=== PATIENT | male | born 1995 | race Hispanic/Latino ===

== ENCOUNTER 2016-07-18 18:36 | Emergency (ER) | payer MEDICAID ==
[2016-07-18 19:20] LABS: Urine Drugs of Abuse Note Disclamer
[2016-07-18 19:29] LABS: Bilirubin,Urine NEG (Negative); Blood,Urine NEG (Negative); Ketones,Urine NEG (Negative); Leukocyte Esterase,Urine NEG (Negative); Nitrite,Urine NEG (Negative); Protein,Urine <15 mg/dL mg/dL (Negative); Urobilinogen,Urine < 2.0 mg/dL (<2.0); WBC,Urine < 1.0 /HPF (0.0-6.0)
[2016-07-18 19:39] LABS: Basophils % (Auto) 0.4 % (0.0-1.8); Eosinophils % (Auto) 2.3 % (0.0-4.3); Hematocrit 41.8 % (35.5-45.6); Mean Corpuscular HGB Conc 34 % (32-34); Mean Corpuscular Hemoglobin 31 pg (28-32); Mean Corpuscular Volume 91 fl (84-94); Platelet Count 185 K/mm3 (140-440); Red Blood Count 4.59 M/mm3 (3.65-5.03); Red Cell Distribution Width 14.5 % (13.2-15.2); White Blood Count 8.9 K/mm3 (4.5-11.0)
[2016-07-18 19:59] LABS: BUN/Creatinine Ratio 14.28; Blood Urea Nitrogen 10 mg/dL (9-20); Carbon Dioxide 30 mmol/L (22-30); Chloride 97.7 mmol/L (98-107); Glucose 84 mg/dL (75-100); Potassium 4.2 mmol/L (3.6-5.0); Sodium 138 mmol/L (137-145)
[2016-07-18 20:08] LABS: Anion Gap 15 mmol/L
--- NOTE | 2016-07-18 21:59 | Emergency Department Report ---
HPI - General Chief Complaint: Psych Time Seen by Provider: 07/18/16 19:29 - HPI HPI: The patient is a 21-year-old male who presents for evaluation of mental health. The patient reports 2-3 days of constant and severe sadness and thoughts of suicidal ideation. He also reports auditory and visual hallucinations. Per local law enforcement, the patient was found walking down the street naked. The patient denies fever, headache, unexplained weight loss or weight gain, heat or cold intolerance, skin, hair, or nail changes, neuro deficits, homicidal ideations, or auditory or visual hallucinations. ED Past Medical Hx - Past Medical History Hx Psychiatric Treatment: Yes (schizophrenia, depression, anxiety, bipolar, ADHD , ADD, multiple personalit) Additional medical history: Autism Spectrum-Asperger Syndrome. Gender Identity Disorder - Surgical History Additional Surgical History: R Wrist - Social History Smoking Status: Unknown if ever smoked - Medications Home Medications: Home Medications Medication Instructions Recorded Confirmed Last Taken Type Divalproex ER [Depakote ER] 500 mg PO BID 06/02/14 07/18/16 1 Day Ago History 500 OLANzapine [Zyprexa] 20 mg PO BID 06/02/14 07/18/16 1 Day Ago History 20 Trazodone HCl [traZODone] 150 mg PO HS 06/02/14 07/18/16 1 Day Ago History 150 AtorvaSTATin [Lipitor] 20 mg PO QPM 06/06/15 07/18/16 1 Day Ago History 20 Benztropine [Cogentin] 2 mg PO BID 06/06/15 07/18/16 1 Day Ago History 2 Chlorpromazine HCl [chlorproMAZINE] 100 mg PO TID 06/06/15 07/18/16 1 Day Ago History 100 Docusate Sodium [Colace CAP] 100 mg PO BID PRN 06/06/15 07/18/16 1 Day Ago History 100 Mirtazapine [Remeron] 30 mg PO QHS 06/06/15 07/18/16 1 Day Ago History 30 clonazePAM [KlonoPIN] 2 mg PO BID 06/06/15 07/18/16 1 Day Ago History 2 diphenhydrAMINE [Benadryl CAP] 50 mg PO QHS PRN 06/06/15 07/18/16 1 Day Ago History 50 ED Review of Systems ROS: Stated complaint: SUICIDAL THOUGHTS Other details as noted in HPI Constitutional: denies: fever ENT: denies: throat or neck pain Respiratory: denies: cough, shortness of breath Cardiovascular: denies: chest pain Endocrine: denies unexplained weight loss or gain Gastrointestinal: denies: abdominal pain, nausea Genitourinary: denies: dysuria Musculoskeletal: denies: leg swelling Skin: denies: rash Neurological: denies: headache Hematological/Lymphatic: denies: easy bleeding or easy bruising Psych: reports depression and suicidal ideation Physical Exam - Physical Exam Vital Signs: Vital Signs 07/18/16 07/18/16 07/18/16 18:52 18:55 19:30 Temperature 98.2 F 98.9 F Pulse Rate 95 H 87 Respiratory 15 15 18 Rate Blood Pressure 121/89 Blood Pressure 121/89 131/80 [Left] O2 Sat by Pulse 96 96 99 Oximetry Physical Exam: General: well-nourished, well-developed, no acute distress Head: Normocephalic, atraumatic Eyes: normal sclera ENT: Mucous membranes are pink and moist Neck: trachea midline, neck supple, No neck stiffness, no cervical adenopathy Respiratory: Breath sounds equal bilaterally, no wheezing, rales, or rhonchi Cardio: S1 and S2 present, no murmurs, rubs, gallops, capillary refill is brisk Abdomen: Normoactive bowel sounds, soft abdomen, no tenderness Musc: No pitting edema Skin: No rash Neuro: no facial drooping, normal speech Psych: Flat affect, poor insight, positive suicidal ideation ED Course Vital Signs 07/18/16 07/18/16 07/18/16 18:52 18:55 19:30 Temperature 98.2 F 98.9 F Pulse Rate 95 H 87 Respiratory 15 15 18 Rate Blood Pressure 121/89 Blood Pressure 121/89 131/80 [Left] O2 Sat by Pulse 96 96 99 Oximetry ED Medical Decision Making - Lab Data Result diagrams: 07/18/16 19:22 07/18/16 19:22 - Medical Decision Making The patient was seen and examined by myself. The patient is placed on a bus driver/monitor and continuous pulse ox. On initial evaluation, the patient was found to be in no distress. Labs are obtained. Lab results are grossly unremarkable. The patient is medically clear. Mental health is consulted. Mental health evaluates the patient and agrees that the patient is at risk of harm to self. A 1013 is completed. The patient will be admitted to a psychiatric facility once bed placement is obtained. Critical care attestation.: If time is entered above; I have spent that time in minutes in the direct care of this critically ill patient, excluding procedure time. ED Disposition Clinical Impression: Suicidal ideation Disposition: DC/TX PSY HOSP/PSY UNIT Is pt being admited?: No Does the pt Need Aspirin: No Condition: Stable Referrals: PRIMARY CARE [Primary Care Provider] - 3-5 Days Time of Disposition: 20:39
[2016-07-18] MEDS ORDERED: TYLENOL PO PRN (22:03)
[2016-07-18] MEDS ORDERED: ALUM-MAG HYDROX-SIMETH 200-200-20MG/5ML PO PRN (22:03)
[2016-07-18] MEDS ORDERED: MILK OF MAGNESIA PO PRN (22:03)
[2016-07-19] MEDS ORDERED: BENADRYL PO ONE (07:36)
[2016-07-19] MEDS: COGENTIN PO SCH ×2 (10:06→22:34)
[2016-07-20] MEDS: COGENTIN PO SCH ×2 (10:02→22:32)
[2016-07-21] MEDS: COGENTIN PO SCH (10:17)
[2016-07-21 15:04] VITALS: BP 144/88
== END 2016-07-21 16:41 ==
LOC: ED 18:36 → EEVIPCON 18:36 → ED 07-21 16:41
DX: R45.851 Suicidal ideations (principal); F20.9 Schizophrenia, unspecified; F41.9 Anxiety disorder, unspecified; F98.8 Other specified behavioral and emotional disorders with onset usually occurring in childhood and adolescence; F84.0 Autistic disorder; F64.9 Gender identity disorder, unspecified; F31.9 Bipolar disorder, unspecified
CPT/HCPCS: 36415; 80048; 80307; 81001; 85025; 99285; A9270; G0480; 80320

== ENCOUNTER 2016-09-13 09:27 | Emergency (ER) | payer MEDICAID ==
[2016-09-13 09:55] LABS: Urine Drugs of Abuse Note Disclamer
[2016-09-13 10:02] LABS: Basophils % (Auto) 0.3 % (0.0-1.8); Eosinophils % (Auto) 2.4 % (0.0-4.3); Hematocrit 45.9 % (35.5-45.6); Hemoglobin 14.9 gm/dl (11.8-15.2); Mean Corpuscular HGB Conc 33 % (32-34); Mean Corpuscular Hemoglobin 30 pg (28-32); Mean Corpuscular Volume 92 fl (84-94); Platelet Count 202 K/mm3 (140-440); Red Cell Distribution Width 14.2 % (13.2-15.2)
[2016-09-13 10:12] LABS: Anion Gap 15 mmol/L; BUN/Creatinine Ratio 11.11; Blood Urea Nitrogen 10 mg/dL (9-20); Calcium 9.5 mg/dL (8.4-10.2); Carbon Dioxide 31 mmol/L (22-30); Chloride 97.7 mmol/L (98-107); Glucose 99 mg/dL (75-100); Potassium 4.5 mmol/L (3.6-5.0); Sodium 139 mmol/L (137-145)
[2016-09-13 10:39] LABS: Bilirubin,Urine NEG (Negative); Blood,Urine NEG (Negative); Ketones,Urine NEG (Negative); Leukocyte Esterase,Urine NEG (Negative); Nitrite,Urine NEG (Negative); Protein,Urine <15 mg/dL mg/dL (Negative); Urobilinogen,Urine < 2.0 mg/dL (<2.0); WBC,Urine < 1.0 /HPF (0.0-6.0)
--- NOTE | 2016-09-13 11:02 | Emergency Department Report ---
ED Psych HPI - General Chief Complaint: Psych Stated Complaint: SUICIDAL Time Seen by Provider: 09/13/16 09:59 Source: patient, police Mode of arrival: Ambulatory - History of Present Illness MD Complaint: suicidal ideation, feels depressed -: Gradual, month(s) Associated Psychiatric Symptoms: suicidal ideation, auditory hallucinations History of same: Yes Quality: constant Improves With: medication Worsens With: none Context: not taking psychiatric, significant life stressor Associated Symptoms: denies other symptoms Treatments Prior to Arrival: placed on mental he If Self Harm: admits thoughts of, has plan - Related Data Home Medications Medication Instructions Recorded Confirmed Last Taken Divalproex ER [Depakote ER] 500 mg PO BID 06/02/14 09/13/16 1 Day Ago 500 OLANzapine [Zyprexa] 20 mg PO BID 06/02/14 09/13/16 1 Day Ago 20 Trazodone HCl [traZODone] 150 mg PO HS 06/02/14 09/13/16 1 Day Ago 150 AtorvaSTATin [Lipitor] 20 mg PO QPM 06/06/15 09/13/16 1 Day Ago 20 Benztropine [Cogentin] 2 mg PO BID 06/06/15 09/13/16 1 Day Ago 2 Chlorpromazine HCl [chlorproMAZINE] 100 mg PO TID 06/06/15 09/13/16 1 Day Ago 100 Docusate Sodium [Colace CAP] 100 mg PO BID PRN 06/06/15 09/13/16 1 Day Ago 100 Mirtazapine [Remeron] 30 mg PO QHS 06/06/15 09/13/16 1 Day Ago 30 clonazePAM [KlonoPIN] 2 mg PO BID 06/06/15 09/13/16 1 Day Ago 2 diphenhydrAMINE [Benadryl CAP] 50 mg PO QHS PRN 06/06/15 09/13/16 1 Day Ago 50 Allergies Allergy/AdvReac Type Severity Reaction Status Date / Time No Known Allergies Allergy Verified 12/15/15 17:49 ED Review of Systems ROS: Stated complaint: SUICIDAL Other details as noted in HPI Comment: All other systems reviewed and negative ED Past Medical Hx - Past Medical History Previous Medical History?: Yes Hx Psychiatric Treatment: Yes (schizophrenia, depression, anxiety, bipolar, ADHD , ADD, multiple personalit) Additional medical history: Autism Spectrum-Asperger Syndrome. Gender Identity Disorder - Surgical History Past Surgical History?: Yes Additional Surgical History: R Wrist - Social History Smoking Status: Never Smoker Substance Use Type: Prescribed - Medications Home Medications: Home Medications Medication Instructions Recorded Confirmed Last Taken Type Divalproex ER [Depakote ER] 500 mg PO BID 06/02/14 09/13/16 1 Day Ago History 500 OLANzapine [Zyprexa] 20 mg PO BID 06/02/14 09/13/16 1 Day Ago History 20 Trazodone HCl [traZODone] 150 mg PO HS 06/02/14 09/13/16 1 Day Ago History 150 AtorvaSTATin [Lipitor] 20 mg PO QPM 06/06/15 09/13/16 1 Day Ago History 20 Benztropine [Cogentin] 2 mg PO BID 06/06/15 09/13/16 1 Day Ago History 2 Chlorpromazine HCl [chlorproMAZINE] 100 mg PO TID 06/06/15 09/13/16 1 Day Ago History 100 Docusate Sodium [Colace CAP] 100 mg PO BID PRN 06/06/15 09/13/16 1 Day Ago History 100 Mirtazapine [Remeron] 30 mg PO QHS 06/06/15 09/13/16 1 Day Ago History 30 clonazePAM [KlonoPIN] 2 mg PO BID 06/06/15 09/13/16 1 Day Ago History 2 diphenhydrAMINE [Benadryl CAP] 50 mg PO QHS PRN 06/06/15 09/13/16 1 Day Ago History 50 ED Physical Exam - General Limitations: Other General appearance: alert, in no apparent distress - Head Head exam: Present: atraumatic, normocephalic - Eye Eye exam: Present: normal appearance - ENT ENT exam: Present: mucous membranes moist - Neck Neck exam: Present: normal inspection - Respiratory Respiratory exam: Present: normal lung sounds bilaterally. Absent: respiratory distress - Cardiovascular Cardiovascular Exam: Present: regular rate, normal rhythm. Absent: systolic murmur, diastolic murmur, rubs, gallop - GI/Abdominal GI/Abdominal exam: Present: soft, normal bowel sounds - Rectal Rectal exam: Present: deferred - Extremities Exam Extremities exam: Present: normal inspection - Back Exam Back exam: Present: normal inspection - Neurological Exam Neurological exam: Present: alert, oriented X3 - Psychiatric Psychiatric exam: Present: depressed, suicidal ideation - Skin Skin exam: Present: warm, dry, intact, normal color. Absent: rash ED Course Vital Signs 09/13/16 09:31 Temperature 98.6 F Pulse Rate 70 Respiratory 18 Rate Blood Pressure 122/76 O2 Sat by Pulse 100 Oximetry ED Medical Decision Making - Lab Data Result diagrams: 09/13/16 09:41 09/13/16 09:41 - Medical Decision Making Patient doing well and calm , no need for meds here in the ER, Psych seeing and assessing the patient, labs neg except for positive uds, waiting for placement. 1013 form in the chart Critical care attestation.: If time is entered above; I have spent that time in minutes in the direct care of this critically ill patient, excluding procedure time. ED Disposition Clinical Impression: Suicidal ideation, Hallucinations Disposition: DC/TX PSY HOSP/PSY UNIT Is pt being admited?: No Does the pt Need Aspirin: No Condition: Good Referrals: PRIMARY CARE, [Primary Care Provider] - 3-5 Days Time of Disposition: 13:57
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
[2016-09-13 16:48] VITALS: BP 140/74
== END 2016-09-13 16:45 ==
LOC: EEVIPCON 09:27 → ED 09:27
DX: R45.851 Suicidal ideations (principal); R44.3 Hallucinations, unspecified; F20.9 Schizophrenia, unspecified; F31.9 Bipolar disorder, unspecified; F41.9 Anxiety disorder, unspecified; F84.5 Asperger's syndrome
CPT/HCPCS: 36415; 80048; 80307; 81001; 85025; 99285; G0480; 80320

== ENCOUNTER 2016-12-27 12:21 | Emergency (ER) | payer MEDICAID ==
[2016-12-27 12:54] LABS: Urine Drugs of Abuse Note Disclamer
[2016-12-27 12:57] LABS: Basophils % (Auto) 0.7 % (0.0-1.8); Eosinophils % (Auto) 0.8 % (0.0-4.3); Hematocrit 45.6 % (35.5-45.6); Hemoglobin 15.2 gm/dl (11.8-15.2); Mean Corpuscular HGB Conc 33 % (32-34); Mean Corpuscular Hemoglobin 30 pg (28-32); Mean Corpuscular Volume 91 fl (84-94); Platelet Count 182 K/mm3 (140-440); Red Blood Count 5.02 M/mm3 (3.65-5.03)
[2016-12-27 13:07] LABS: Bilirubin,Urine NEG (Negative); Blood,Urine NEG (Negative); Ketones,Urine NEG (Negative); Leukocyte Esterase,Urine NEG (Negative); Mucus,Urine FEW /HPF; Nitrite,Urine NEG (Negative); Protein,Urine <15 mg/dL mg/dL (Negative)
[2016-12-27 13:14] LABS: Anion Gap 20 mmol/L; BUN/Creatinine Ratio 12.22; Blood Urea Nitrogen 11 mg/dL (9-20); Calcium 9.3 mg/dL (8.4-10.2); Carbon Dioxide 25 mmol/L (22-30); Chloride 100.9 mmol/L (98-107); Glucose 109 mg/dL (75-100); Potassium 4.2 mmol/L (3.6-5.0); Sodium 142 mmol/L (137-145)
[2016-12-27] MEDS ORDERED: MILK OF MAGNESIA PO PRN (14:53)
[2016-12-27] MEDS ORDERED: ALUM-MAG HYDROX-SIMETH 200-200-20MG/5ML PO PRN (14:53)
[2016-12-27] MEDS ORDERED: TYLENOL PO PRN (14:53)
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
[2016-12-28 16:25] LABS: Alanine Aminotransferase 12 units/L (7-56); Alkaline Phosphatase 59 units/L (35-129)
[2016-12-29 11:00] VITALS: BP 131/87
--- NOTE | 2016-12-29 15:59 | Progress Note ---
Subjective - Reason for Consult Consult date: 12/29/16 Reason for consult: Psychiatry Follow-up - Chief Complaint Chief complaint: "Will I be leaving today" The patient is a 21-year-old male presenting to [facility] for a mental health evaluation. Today patient is calm and cooperative during the assessment. He stated that he is ready to leave. He denies SI/HI's, AVH's, and depression symptoms. Per the staff, no behavioral disturbances overnight. Mental Status Exam - Vital signs Last Vital Signs Temp 97.7 F 12/29/16 10:58 Pulse 82 12/29/16 10:58 Resp 18 12/29/16 10:58 BP 131/87 12/29/16 10:58 Pulse Ox 99 12/29/16 10:58 - Exam Narrative exam: MSE: Appearance: calm, cooperative Behavior: good eye contact Speech: regular rate and tone Mood: "okay" Affect: congruent to mood Thought Process: linear Thought Content: denies SI/HI's and AVH's Motor Activity: ambulatory Cognition: A/Ox 3 Insight: fair Judgment: fair Assessment and Plan Impression: Historical Dx: Bipolar DO. Today patient is calm and cooperative during the assessment. He stated that he is ready to leave. He denies SI/HI's and AVH's. Recommendation/Plan: Rag Production Worker involvement for placement. Patient stated that he have home regimen of medications.
== END 2016-12-29 17:43 | disposition home or self-care (01) ==
LOC: EEVIPCON 12:21 → ED 12:21
DX: F23 Brief psychotic disorder (principal); R45.851 Suicidal ideations; F20.9 Schizophrenia, unspecified; F31.9 Bipolar disorder, unspecified; F41.9 Anxiety disorder, unspecified; F84.5 Asperger's syndrome; F84.0 Autistic disorder
CPT/HCPCS: 36415; 80048; 80307; 81001; 85025; 99284; G0480; 80320

== ENCOUNTER 2017-04-07 20:11 | Emergency (ER) | payer MEDICAID ==
[2017-04-07 20:47] LABS: Basophils % (Auto) 0.4 % (0.0-1.8); Eosinophils % (Auto) 0.7 % (0.0-4.3); Hemoglobin 14.9 gm/dl (11.8-15.2); Mean Corpuscular HGB Conc 33 % (32-34); Mean Corpuscular Hemoglobin 30 pg (28-32); Mean Corpuscular Volume 91 fl (84-94); Platelet Count 171 K/mm3 (140-440); Red Blood Count 4.97 M/mm3 (3.65-5.03); Red Cell Distribution Width 14.6 % (13.2-15.2); White Blood Count 11.6 K/mm3 (4.5-11.0)
[2017-04-07 20:52] LABS: Anion Gap 19 mmol/L; BUN/Creatinine Ratio 20; Blood Urea Nitrogen 16 mg/dL (9-20); Carbon Dioxide 25 mmol/L (22-30); Chloride 98.6 mmol/L (98-107); Glucose 110 mg/dL (75-100); Potassium 3.9 mmol/L (3.6-5.0); Sodium 139 mmol/L (137-145)
[2017-04-07 21:23] LABS: Urine Drugs of Abuse Note Disclamer
--- NOTE | 2017-04-07 21:25 | Emergency Department Report ---
ED Psych HPI - General Chief Complaint: Psych Stated Complaint: MH Time Seen by Provider: 04/07/17 21:18 Source: patient Mode of arrival: Ambulatory - History of Present Illness Initial Comments: 21-year-old male presents to emergency department complaining of suicidal ideations and auditory hallucinations. Patient does have these multiple times before. States they've been getting worse over the last several days. MD Complaint: suicidal ideation -: Sudden Associated Psychiatric Symptoms: depression, suicidal ideation, homicidal ideation, auditory hallucinations Context: not taking psychiatric - Related Data Home Medications Medication Instructions Recorded Confirmed Last Taken Divalproex ER [Depakote ER] 500 mg PO BID 06/02/14 04/07/17 1 Day Ago 500 OLANzapine [Zyprexa] 20 mg PO BID 06/02/14 04/07/17 1 Day Ago 20 Trazodone HCl [traZODone] 150 mg PO HS 06/02/14 04/07/17 1 Day Ago 150 AtorvaSTATin [Lipitor] 20 mg PO QPM 06/06/15 04/07/17 1 Day Ago 20 Benztropine [Cogentin] 2 mg PO BID 06/06/15 04/07/17 1 Day Ago 2 Chlorpromazine HCl [chlorproMAZINE] 100 mg PO TID 06/06/15 04/07/17 1 Day Ago 100 Docusate Sodium [Colace CAP] 100 mg PO BID PRN 06/06/15 04/07/17 1 Day Ago 100 Mirtazapine [Remeron] 30 mg PO QHS 06/06/15 04/07/17 1 Day Ago 30 clonazePAM [KlonoPIN] 2 mg PO BID 06/06/15 04/07/17 1 Day Ago 2 diphenhydrAMINE [Benadryl CAP] 50 mg PO QHS PRN 06/06/15 04/07/17 1 Day Ago 50 Allergies Allergy/AdvReac Type Severity Reaction Status Date / Time No Known Allergies Allergy Verified 12/27/16 12:26 ED Review of Systems ROS: Stated complaint: MH Other details as noted in HPI Comment: All other systems reviewed and negative Constitutional: denies: chills, fever ENT: denies: ear pain, throat pain Respiratory: denies: cough, shortness of breath, wheezing Cardiovascular: denies: chest pain, palpitations Endocrine: no symptoms reported Gastrointestinal: diarrhea. denies: abdominal pain, nausea Genitourinary: denies: urgency, dysuria Musculoskeletal: denies: back pain, joint swelling, arthralgia Skin: denies: rash, lesions Neurological: denies: headache, weakness, paresthesias Psychiatric: anxiety, auditory hallucinations, suicidal thoughts. denies: depression Hematological/Lymphatic: denies: easy bleeding, easy bruising ED Past Medical Hx - Past Medical History Previous Medical History?: Yes Hx Psychiatric Treatment: Yes (schizophrenia, depression, anxiety, bipolar, ADHD , ADD, multiple personalit) Additional medical history: Autism Spectrum-Asperger Syndrome. Gender Identity Disorder - Surgical History Past Surgical History?: Yes Additional Surgical History: R Wrist - Family History Family history: no significant - Social History Smoking Status: Never Smoker Substance Use Type: None - Medications Home Medications: Home Medications Medication Instructions Recorded Confirmed Last Taken Type Divalproex ER [Depakote ER] 500 mg PO BID 06/02/14 04/07/17 1 Day Ago History 500 OLANzapine [Zyprexa] 20 mg PO BID 06/02/14 04/07/17 1 Day Ago History 20 Trazodone HCl [traZODone] 150 mg PO HS 06/02/14 04/07/17 1 Day Ago History 150 AtorvaSTATin [Lipitor] 20 mg PO QPM 06/06/15 04/07/17 1 Day Ago History 20 Benztropine [Cogentin] 2 mg PO BID 06/06/15 04/07/17 1 Day Ago History 2 Chlorpromazine HCl [chlorproMAZINE] 100 mg PO TID 06/06/15 04/07/17 1 Day Ago History 100 Docusate Sodium [Colace CAP] 100 mg PO BID PRN 06/06/15 04/07/17 1 Day Ago History 100 Mirtazapine [Remeron] 30 mg PO QHS 06/06/15 04/07/17 1 Day Ago History 30 clonazePAM [KlonoPIN] 2 mg PO BID 06/06/15 04/07/17 1 Day Ago History 2 diphenhydrAMINE [Benadryl CAP] 50 mg PO QHS PRN 06/06/15 04/07/17 1 Day Ago History 50 ED Physical Exam - General Limitations: No Limitations General appearance: alert, in no apparent distress - Head Head exam: Present: atraumatic, normocephalic - Eye Eye exam: Present: normal appearance. Absent: scleral icterus, conjunctival injection - ENT ENT exam: Present: mucous membranes moist - Neck Neck exam: Present: normal inspection. Absent: tenderness, meningismus - Respiratory Respiratory exam: Present: normal lung sounds bilaterally. Absent: respiratory distress, wheezes, rales - Cardiovascular Cardiovascular Exam: Present: regular rate, normal rhythm, normal heart sounds. Absent: systolic murmur, diastolic murmur, rubs, gallop - GI/Abdominal GI/Abdominal exam: Present: soft, normal bowel sounds - Rectal Rectal exam: Present: deferred - Extremities Exam Extremities exam: Present: normal inspection - Back Exam Back exam: Present: normal inspection - Neurological Exam Neurological exam: Present: alert, oriented X3 - Psychiatric Psychiatric exam: Present: normal affect, normal mood, suicidal ideation - Skin Skin exam: Present: warm, dry, intact, normal color. Absent: rash ED Course Vital Signs 04/07/17 20:14 Temperature 98.9 F Pulse Rate 88 Respiratory 17 Rate Blood Pressure 139/73 O2 Sat by Pulse 99 Oximetry ED Medical Decision Making - Lab Data Result diagrams: 04/07/17 20:25 04/07/17 20:25 Laboratory Results - last 24 hr 04/07/17 04/07/17 04/07/17 20:25 20:25 20:25 WBC 11.6 H RBC 4.97 Hgb 14.9 Hct 45.0 MCV 91 MCH 30 MCHC 33 RDW 14.6 Plt Count 171 Lymph % (Auto) 30.6 Blair % (Auto) 10.2 H Eos % (Auto) 0.7 Baso % (Auto) 0.4 Lymph # 3.5 Blair # 1.2 H Eos # 0.1 Baso # 0.0 Seg Neutrophils % 58.1 Seg Neutrophils # 6.7 Sodium 139 Potassium 3.9 Chloride 98.6 Carbon Dioxide 25 Anion Gap 19 BUN 16 Creatinine 0.8 Estimated GFR > 60 BUN/Creatinine Ratio 20 Glucose 110 H Calcium 9.0 Plasma/Serum Alcohol < 0.01 - Medical Decision Making Patient is a 21 male with a history of psychiatric illness who was complaining of suicidality. Plan to place patient on a psychiatric hold and will have psychiatry evaluate the patient. Portions of this chart were dictated with dictation software. There may be dictation errors contained within this note. Critical care attestation.: If time is entered above; I have spent that time in minutes in the direct care of this critically ill patient, excluding procedure time. ED Disposition Clinical Impression: Suicidal ideation Disposition: DC/TX-70 ANOTHER TYPE HLTHCARE Is pt being admited?: No Condition: Stable
[2017-04-07 21:29] LABS: Bilirubin,Urine NEG (Negative); Blood,Urine NEG (Negative); Ketones,Urine NEG (Negative); Leukocyte Esterase,Urine NEG (Negative); Mucus,Urine FEW /HPF; Nitrite,Urine NEG (Negative); Protein,Urine <15 mg/dL mg/dL (Negative); WBC,Urine < 1.0 /HPF (0.0-6.0)
[2017-04-08] MEDS: REMERON PO SCH ×2 (00:33→22:28)
[2017-04-08] MEDS: DESYREL PO SCH ×2 (00:33→22:26)
[2017-04-08] MEDS: COGENTIN PO SCH ×3 (00:34→22:29)
[2017-04-08] MEDS ORDERED: COGENTIN ONE (00:41)
--- NOTE | 2017-04-08 12:19 | Consultation ---
History of Present Illness - Reason for Consult Consult date: 04/08/17 Reason for consult: Mental Health Evaluation Requesting physician: JIM HOLLEY - Chief Complaint Chief complaint: "I am suicidal" - History of Present Psychiatric Illness 21 y.o. white male presenting to [facility] for SI's. This patient is known to me. Today patient is calm and cooperative during the assessment. He stated that he became "suicidal" because of an argument at his [facility] with staff. Also, he stated that he was thinking about not being with his parents which exacerbated his "sadness." The patient could not elaborate more about how he feels at this time. When I asked the patient to be more specific about what happened at the penitentiary, he became quiet. He denies HI's and AVH's. He denies sleep disturbance and a poor appetite. He denies recreational drug use and alcohol consumption (etoh). Medications and Allergies Allergies Allergy/AdvReac Type Severity Reaction Status Date / Time No Known Allergies Allergy Verified 12/27/16 12:26 Home Medications Medication Instructions Recorded Confirmed Last Taken Type Divalproex ER [Depakote ER] 500 mg PO BID 06/02/14 04/07/17 1 Day Ago History 500 OLANzapine [Zyprexa] 20 mg PO BID 06/02/14 04/07/17 1 Day Ago History 20 Trazodone HCl [traZODone] 150 mg PO HS 06/02/14 04/07/17 1 Day Ago History 150 AtorvaSTATin [Lipitor] 20 mg PO QPM 06/06/15 04/07/17 1 Day Ago History 20 Benztropine [Cogentin] 2 mg PO BID 06/06/15 04/07/17 1 Day Ago History 2 Chlorpromazine HCl [chlorproMAZINE] 100 mg PO TID 06/06/15 04/07/17 1 Day Ago History 100 Docusate Sodium [Colace CAP] 100 mg PO BID PRN 06/06/15 04/07/17 1 Day Ago History 100 Mirtazapine [Remeron] 30 mg PO QHS 06/06/15 04/07/17 1 Day Ago History 30 clonazePAM [KlonoPIN] 2 mg PO BID 06/06/15 04/07/17 1 Day Ago History 2 diphenhydrAMINE [Benadryl CAP] 50 mg PO QHS PRN 06/06/15 04/07/17 1 Day Ago History 50 Active Meds: Active Medications Benztropine Mesylate (Cogentin) 2 mg PO BID [facility] Last Admin: 04/08/17 10:16 Dose: 2 mg Clonazepam (Klonopin) 2 mg PO BID [facility] Last Admin: 04/08/17 10:16 Dose: 2 mg Divalproex Sodium (Depakote Er) 500 mg PO BID [facility] Last Admin: 04/08/17 10:16 Dose: 500 mg Mirtazapine (Remeron) 30 mg PO QHS [facility] Last Admin: 04/08/17 00:33 Dose: 30 mg Olanzapine (Zyprexa) 20 mg PO BID [facility] Last Admin: 04/08/17 10:16 Dose: 20 mg Trazodone HCl (Desyrel) 150 mg PO QHS [facility] Last Admin: 04/08/17 00:33 Dose: 150 mg Past psychiatric history - Past Medical History Past Medical History: other (Autism) Past Surgical History: Other (Right wrist surgery) - past Psychiatric treatment and history Psych: Bipolar psychiatric treatment history: Patient is seen by an ACT Team. Denies a fam psy hx. - Social History Social history: other (Resides at a penitentiary) Mental Status Exam - Vital signs Last Vital Signs Temp 97.5 F L 04/08/17 09:45 Pulse 62 04/08/17 09:45 Resp 20 04/08/17 09:46 BP 104/63 04/08/17 09:45 Pulse Ox 96 04/08/17 09:46 - Exam Narrative exam: MSE: Appearance: calm, cooperative Behavior: regular eye contact Speech: regular rate and tone Mood: "upset" Affect: congruent to mood Thought Process: circumstantial Thought Content: denies HI's and AVH's Motor Activity: lying in bed Cognition: A/O x3 Insight: variable Judgment: variable Results Result Diagrams: 04/07/17 20:25 04/07/17 20:25 Abnormal lab results 04/07/17 04/07/17 Range/Units 20:25 20:25 WBC 11.6 H (4.5-11.0) K/mm3 Angelina % (Auto) 10.2 H (0.0-7.3) % Angelina # 1.2 H (0.0-0.8) K/mm3 Glucose 110 H (75-100) mg/dL All other labs normal. Assessment and Plan Assessment and plan: Impression: Historical Dx: Bipolar DO. Today patient is calm and cooperative during the assessment. Patient endorses SI's. DDx: R/O MDD Recommendation/Plan: Continue 1013 with placement to inpatient psy services. Continue current medication regimen. Discussed generalized coping skill with patient. Discussed possible suicidality/medication induced sue with patient reference antidepressants. Discussed possible metabolic side effects of Zyprexa with patient. Ordered LFT's now and VA level in the AM.
[2017-04-08 13:35] LABS: Alanine Aminotransferase 14 units/L (7-56); Alkaline Phosphatase 50 units/L (35-129)
[2017-04-09] MEDS: COGENTIN PO SCH ×2 (09:53→22:01)
--- NOTE | 2017-04-09 11:55 | Progress Note ---
Subjective - Reason for Consult Consult date: 04/09/17 Reason for consult: Psychiatry Follow-up - Chief Complaint Chief complaint: "Can I go to another snf" 21 y.o. white male presenting to [facility] for SI's. This patient is known to me. Today patient is calm and cooperative during the assessment. He stated that he would like to go to another snf. He stated that he feel his entire family don't love him. He stated that he would feel much better if his concerns are addressed. He did state that his SI's has "decreased" in the last 24 hours. He denies HI's and AVH's. He denies any side effects of his medications. Mental Status Exam - Vital signs Last Vital Signs Temp 97.8 F 04/09/17 08:29 Pulse 57 L 04/09/17 08:29 Resp 15 04/09/17 08:29 BP 142/87 04/09/17 08:29 Pulse Ox 100 04/09/17 08:29 - Exam Narrative exam: MSE: Appearance: calm, cooperative Behavior: regular eye contact Speech: regular rate and tone Mood: "so so" Affect: congruent to mood Thought Process: circumstantial Thought Content: denies HI's and AVH's, passive SI's Motor Activity: lying in bed Cognition: A/O x3 Insight: variable Judgment: variable Assessment and Plan Impression: Historical Dx: Bipolar DO/Autism. Today patient is calm and cooperative during the assessment. Patient has passive SI's. VA 61.3. DDx: R/O MDD Recommendation/Plan: Continue 1013. Continue current medication regimen. Discussed generalized coping skill with patient. Discussed possible suicidality/ medication induced sue with patient reference antidepressants. Discussed possible metabolic side effects of Zyprexa with patient. Diesel Engine Engineer involvement, patient would like information about a new snf. Patient is seen by [facility] for outpatient psy services.
[2017-04-09] MEDS ORDERED: ATIVAN IM ONE (18:52)
[2017-04-09] MEDS: DESYREL PO SCH (22:03)
[2017-04-09] MEDS: REMERON PO SCH (22:05)
--- NOTE | 2017-04-10 10:29 | Progress Note ---
Subjective - Reason for Consult Consult date: 04/10/17 Reason for consult: Psychiatry Follow-up - Chief Complaint Chief complaint: "I am not suicidal" 21 y.o. white male presenting to [facility] for SI's. This patient is known to me. Today patient is calm and cooperative during the assessment. He stated that he is willing to return back to his half-way once discharged. He stated that he isn't suicidal now or on admission. He stated that he was just "upset" when he was admitted to [facility]. He denies SI/HI's, AVH"s, and depression. Patient has been compliant with his medications with no behavioral disturbances per the staff. He stated that [facility] manage his outpatient psy services. Mental Status Exam - Vital signs Last Vital Signs Temp 97.8 F 04/09/17 08:29 Pulse 57 L 04/09/17 08:29 Resp 15 04/09/17 08:29 BP 142/87 04/09/17 08:29 Pulse Ox 100 04/09/17 08:29 - Exam Narrative exam: MSE: Appearance: calm, cooperative Behavior: regular eye contact Speech: regular rate and tone Mood: "better" Affect: congruent to mood Thought Process: linear, logical Thought Content: denies SI/HI's and AVH's Motor Activity: ambulatory Cognition: A/O x3 Insight: fair Judgment: fair Assessment and Plan Impression: Historical Dx: Bipolar DO/Autism. Today patient is calm and cooperative during the assessment. Patient denies SI's. Patient is no threat to self. DDx: R/O MDD Recommendation/Plan: Rescind 1013. Patient do not need any prescriptions. Template Clerk involvement, patient will need transportation back to his half-way. Patient can follow-up with [facility] for outpatient psy services.
[2017-04-10] MEDS: COGENTIN PO SCH (11:25)
[2017-04-10 15:55] VITALS: BP 134/81
--- NOTE | 2017-04-10 18:57 | Emergency Department Report ---
Blank Doc - Documentation Documentation: I was asked by the behavioral health team, on behalf of [facility] and their attending psychiatrist, to fill out discharge paperwork for this patient. The behavioral health team has seen and evaluated this patient and does not feel that he is a danger to himself and has rescinded the 1013.
== END 2017-04-10 20:04 | disposition home or self-care (01) ==
LOC: ED 20:11 → EEVIPCON 20:11 → ED 04-10 20:04
DX: R45.851 Suicidal ideations (principal); F31.9 Bipolar disorder, unspecified; F20.9 Schizophrenia, unspecified; F90.9 Attention-deficit hyperactivity disorder, unspecified type; F98.8 Other specified behavioral and emotional disorders with onset usually occurring in childhood and adolescence
CPT/HCPCS: 36415; 80048; 80164; 80307; 81001; 84075; 84450; 84460; 85025; 96372; 99283; G0480; J2060; 80320

== ENCOUNTER 2017-07-30 12:18 | Emergency (ER) | payer MEDICAID ==
[2017-07-30 12:57] LABS: Bilirubin,Urine NEG (Negative); Blood,Urine NEG (Negative); Color,Urine Yellow (Yellow); Nitrite,Urine NEG (Negative); Protein,Urine <15 mg/dL mg/dL (Negative); Urobilinogen,Urine < 2.0 mg/dL (<2.0); WBC,Urine < 1.0 /HPF (0.0-6.0)
[2017-07-30 13:05] LABS: Amphetamine Screen,Urine PRESUMPTIVE NEGATIVE; Cannabinoid Screen,Urine PRESUMPTIVE NEGATIVE; Cocaine Screen,Urine PRESUMPTIVE NEGATIVE; Methadone Screen,Urine PRESUMPTIVE NEGATIVE; Opiate Screen,Urine PRESUMPTIVE NEGATIVE
[2017-07-30 13:20] LABS: Benzodiazepines Screen,Urine PRESUMPTIVE POSITIVE
[2017-07-30 15:47] LABS: BUN/Creatinine Ratio 13; Blood Urea Nitrogen 9 mg/dL (9-20); Calcium 8.9 mg/dL (8.4-10.2); Hemolysis Index 8
--- NOTE | 2017-07-30 15:51 | Emergency Department Report ---
ED Psych HPI - General Chief Complaint: Psych Stated Complaint: HEARING VOICES Time Seen by Provider: 07/30/17 12:44 Source: patient (H/o multiple personalities and suicidal attempts presented to the ER with hearing voices, seeing things and suicidal ideation. Been going on for over a month since he was d/c from psych. Voices are not clear and at the ER he is jearing whispers. Not seeing shadows at the ER. Suicidal thoughts like cutting his wirst with a knife. He says he is fighting very hard not to turn to his other personality, Mandy, because she embaresses him because she runs around naked. ), EMS Mode of arrival: Ambulatory - Related Data Home Medications Medication Instructions Recorded Confirmed Last Taken Divalproex ER [Depakote ER] 500 mg PO BID 06/02/14 04/07/17 1 Day Ago ~07/17/16 500 OLANzapine [Zyprexa] 20 mg PO BID 06/02/14 04/07/17 1 Day Ago ~07/17/16 20 Trazodone HCl [traZODone] 150 mg PO HS 06/02/14 04/07/17 1 Day Ago ~07/17/16 150 AtorvaSTATin [Lipitor] 20 mg PO QPM 06/06/15 04/07/17 1 Day Ago ~07/17/16 20 Benztropine [Cogentin] 2 mg PO BID 06/06/15 04/07/17 1 Day Ago ~07/17/16 2 Chlorpromazine HCl [chlorproMAZINE] 100 mg PO TID 06/06/15 04/07/17 1 Day Ago ~07/17/16 100 Docusate Sodium [Colace CAP] 100 mg PO BID PRN 06/06/15 04/07/17 1 Day Ago ~07/17/16 100 Mirtazapine [Remeron] 30 mg PO QHS 06/06/15 04/07/17 1 Day Ago ~07/17/16 30 clonazePAM [KlonoPIN] 2 mg PO BID 06/06/15 04/07/17 1 Day Ago ~07/17/16 2 diphenhydrAMINE [Benadryl CAP] 50 mg PO QHS PRN 06/06/15 04/07/17 1 Day Ago ~07/17/16 50 Allergies Allergy/AdvReac Type Severity Reaction Status Date / Time No Known Allergies Allergy Verified 12/27/16 12:26 ED Review of Systems ROS: Stated complaint: HEARING VOICES Other details as noted in HPI Constitutional: denies: chills, fever Eyes: denies: eye pain, eye discharge, vision change ENT: denies: ear pain, throat pain Respiratory: denies: cough, shortness of breath, wheezing Cardiovascular: denies: chest pain, palpitations Endocrine: no symptoms reported Gastrointestinal: denies: abdominal pain, nausea, diarrhea Genitourinary: denies: urgency, dysuria Musculoskeletal: denies: back pain, joint swelling, arthralgia Skin: denies: rash, lesions Neurological: denies: headache, weakness, paresthesias Psychiatric: denies: anxiety, depression Hematological/Lymphatic: denies: easy bleeding, easy bruising ED Past Medical Hx - Past Medical History Hx Psychiatric Treatment: Yes (schizophrenia, depression, anxiety, bipolar, ADHD , ADD, multiple personalit) Additional medical history: Autism Spectrum-Asperger Syndrome. Gender Identity Disorder - Surgical History Additional Surgical History: R Wrist - Social History Smoking Status: Never Smoker - Medications Home Medications: Home Medications Medication Instructions Recorded Confirmed Last Taken Type Divalproex ER [Depakote ER] 500 mg PO BID 06/02/14 04/07/17 1 Day Ago History ~07/17/16 500 OLANzapine [Zyprexa] 20 mg PO BID 06/02/14 04/07/17 1 Day Ago History ~07/17/16 20 Trazodone HCl [traZODone] 150 mg PO HS 06/02/14 04/07/17 1 Day Ago History ~07/17/16 150 AtorvaSTATin [Lipitor] 20 mg PO QPM 06/06/15 04/07/17 1 Day Ago History ~07/17/16 20 Benztropine [Cogentin] 2 mg PO BID 06/06/15 04/07/17 1 Day Ago History ~07/17/16 2 Chlorpromazine HCl [chlorproMAZINE] 100 mg PO TID 06/06/15 04/07/17 1 Day Ago History ~07/17/16 100 Docusate Sodium [Colace CAP] 100 mg PO BID PRN 06/06/15 04/07/17 1 Day Ago History ~01/16/17 100 Mirtazapine [Remeron] 30 mg PO QHS 06/06/15 04/07/17 1 Day Ago History ~07/17/16 30 clonazePAM [KlonoPIN] 2 mg PO BID 06/06/15 04/07/17 1 Day Ago History ~07/17/16 2 diphenhydrAMINE [Benadryl CAP] 50 mg PO QHS PRN 06/06/15 04/07/17 1 Day Ago History ~07/17/16 50 ED Physical Exam - General Limitations: No Limitations General appearance: alert, in no apparent distress - Head Head exam: Present: atraumatic, normocephalic - Eye Eye exam: Present: normal appearance - ENT ENT exam: Present: mucous membranes moist - Neck Neck exam: Present: normal inspection - Respiratory Respiratory exam: Present: normal lung sounds bilaterally. Absent: respiratory distress - Cardiovascular Cardiovascular Exam: Present: regular rate, normal rhythm. Absent: systolic murmur, diastolic murmur, rubs, gallop - GI/Abdominal GI/Abdominal exam: Present: soft, normal bowel sounds - Rectal Rectal exam: Present: deferred - Extremities Exam Extremities exam: Present: normal inspection - Back Exam Back exam: Present: normal inspection - Neurological Exam Neurological exam: Present: alert, oriented X3 - Psychiatric Psychiatric exam: Present: normal affect, normal mood, suicidal ideation, other (auditory hallucinations) - Skin Skin exam: Present: warm, dry, intact, normal color. Absent: rash ED Course Vital Signs 07/30/17 07/30/17 12:20 15:08 Temperature 97.5 F L Pulse Rate 70 Respiratory 16 16 Rate Blood Pressure 124/71 O2 Sat by Pulse 97 Oximetry Critical care attestation.: If time is entered above; I have spent that time in minutes in the direct care of this critically ill patient, excluding procedure time. ED Disposition Clinical Impression: Suicidal ideation, Hallucination Disposition: DC/TX-65 PSY HOSP/PSY UNIT Is pt being admited?: No Does the pt Need Aspirin: No Condition: Stable Referrals: KERWIN BORGES MD [Primary Care Provider] - 3-5 Days
[2017-07-30 15:56] LABS: Basophils # (Auto) 0.1 K/mm3 (0.0-0.1); Basophils % (Auto) 0.5 % (0.0-1.8); Eosinophils # (Auto) 0.1 K/mm3 (0.0-0.4); Eosinophils % (Auto) 0.9 % (0.0-4.3); Hematocrit 45.3 % (35.5-45.6); Hemoglobin 15.1 gm/dl (11.8-15.2); Lymphocytes % (Auto) 29.1 % (13.4-35.0); Mean Corpuscular HGB Conc 33 % (32-34); Mean Corpuscular Hemoglobin 31 pg (28-32); Mean Corpuscular Volume 94 fl (84-94); Monocytes # (Auto) 0.7 K/mm3 (0.0-0.8); Monocytes % (Auto) 6.9 % (0.0-7.3); Platelet Count 167 K/mm3 (140-440); Red Blood Count 4.84 M/mm3 (3.65-5.03)
[2017-07-30] MEDS ORDERED: REMERON PO SCH (22:00)
[2017-07-30] MEDS ORDERED: BENADRYL PO SCH (22:00)
[2017-07-31] MEDS ORDERED: BENADRYL PO PRN (02:35)
[2017-07-31] MEDS: DESYREL PO SCH ×2 (02:41→21:59)
--- NOTE | 2017-07-31 11:59 | Consultation ---
History of Present Illness - Reason for Consult Consult date: 07/31/17 Reason for consult: Mental Health Evaluation Requesting physician: SHAINA HACKETT - Chief Complaint Chief complaint: "It's Mandy" - History of Present Psychiatric Illness 22 y.o. white male presenting to [facility] for SI's. This patient is known to me. Today the patient is calm and cooperative during the assessment. He is adamant to "Mandy" is caused of his SI's. The patient identifies as "Mandy" intermittently. He stated that she want him to harm himself. He stated that he has tried to ignore her, but at this time he cannot. He stated that he is suicidal with a plan to drink "some type of poison." He stated that he cannot handle the relationship with "Mandy." He admitted to multiple suicide attempts in the past. He denies HI's and AVH's. He stated that "Mandy" keeps him up at night, so his sleep is erratic. He admitted to having racing thoughts. He denies any abuse at his current nursing home. He denies recreational drug use and alcohol consumption (etoh). Medications and Allergies Allergies Allergy/AdvReac Type Severity Reaction Status Date / Time No Known Allergies Allergy Verified 12/27/16 12:26 Home Medications Medication Instructions Recorded Confirmed Last Taken Type Divalproex ER [Depakote ER] 500 mg PO BID 06/02/14 07/31/17 1 Day Ago History ~07/17/16 500 OLANzapine [Zyprexa] 20 mg PO BID 06/02/14 07/31/17 1 Day Ago History ~07/17/16 20 Trazodone HCl [traZODone] 150 mg PO HS 06/02/14 07/31/17 1 Day Ago History ~07/17/16 150 AtorvaSTATin [Lipitor] 20 mg PO QPM 06/06/15 07/31/17 1 Day Ago History ~07/17/16 20 Benztropine [Cogentin] 2 mg PO BID 06/06/15 07/31/17 1 Day Ago History ~07/17/16 2 Chlorpromazine HCl [chlorproMAZINE] 100 mg PO TID 06/06/15 07/31/17 1 Day Ago History ~07/17/16 100 Docusate Sodium [Colace CAP] 100 mg PO BID PRN 06/06/15 07/31/17 1 Day Ago History ~07/17/16 100 Mirtazapine [Remeron] 30 mg PO QHS 06/06/15 07/31/17 1 Day Ago History ~07/17/16 30 clonazePAM [KlonoPIN] 2 mg PO BID 06/06/15 07/31/17 1 Day Ago History ~07/17/16 2 diphenhydrAMINE [Benadryl CAP] 50 mg PO QHS PRN 06/06/15 07/31/17 1 Day Ago History ~07/17/16 50 Active Meds: Active Medications Diphenhydramine HCl (Benadryl) 25 mg PO QHS PRN PRN Reason: Insomnia Stop: 08/03/17 21:59 Mirtazapine (Remeron) 30 mg PO QHS MUKESH Stop: 08/03/17 21:59 Last Admin: 07/31/17 02:40 Dose: 30 mg Trazodone HCl (Desyrel) 150 mg PO QHS MUKESH Stop: 08/03/17 21:59 Last Admin: 07/31/17 02:41 Dose: 150 mg Past psychiatric history - Past Medical History Past Medical History: No medical history Past Surgical History: No surgical history - past Psychiatric treatment and history psychiatric treatment history: Multiple inpatient psy settings. He cannot confirm or deny a fam psy hx. - Social History Social history: other (Resides at a nursing home) Mental Status Exam - Vital signs Last Vital Signs Temp 97.4 F L 07/31/17 08:07 Pulse 89 07/31/17 08:07 Resp 14 07/31/17 08:15 BP 120/78 07/31/17 08:07 Pulse Ox 96 07/31/17 08:15 - Exam Narrative exam: MSE: Appearance: calm, cooperative Behavior: regular eye contact Speech: regular rate and tone Mood: "okay" Affect: congruent to mood Thought Process: circumstantial Thought Content: denies HI's and AVH's Motor Activity: ambulatory Cognition: A/O x3 Insight: variable Judgment: variable Results Result Diagrams: 07/30/17 14:56 07/30/17 14:56 Abnormal lab results 07/30/17 07/30/17 Range/Units 14:56 14:56 Chloride 96.1 L (98-107) mmol/L Creatinine 0.7 L (0.8-1.5) mg/dL Glucose 104 H (75-100) mg/dL Salicylates < 0.3 L (2.8-20.0) mg/dL All other labs normal. Assessment and Plan Assessment and plan: Impression: Hx of Bipolar DO/Autism. DID. Today the patient is calm and cooperative during the assessment. Patient endorses SI's. DDx: R/O MDD Recommendation/Plan: Continue 1013 with placement to inpatient psy services. Continue current home medication regimen.
[2017-07-31 13:57] LABS: Alanine Aminotransferase 16 units/L (7-56); Lipase 31 units/L (13-60)
[2017-07-31] MEDS: COGENTIN PO SCH (21:57)
[2017-08-01] MEDS: COGENTIN PO SCH (21:56)
[2017-08-01] MEDS: DESYREL PO SCH (21:56)
--- NOTE | 2017-08-02 10:15 | Progress Note ---
Subjective - Reason for Consult Consult date: 08/02/17 Reason for consult: Psychiatry Follow-up - Chief Complaint Chief complaint: "When will I be leaving" 22 y.o. white male presenting to [facility]. This patient is known to me. Today the patient is calm and cooperative during the assessment. He continue to state having SI's because "Mandy" wants to take over his body. He would not elaborate more when asked about "Mandy." He denies HI's and AVH's. He denies any side effects of his medications. Mental Status Exam - Vital signs Last Vital Signs Temp 97.7 F 08/01/17 20:00 Pulse 67 08/01/17 20:00 Resp 18 08/01/17 20:00 BP 126/80 08/01/17 20:00 Pulse Ox 96 08/01/17 20:00 - Exam Narrative exam: MSE: Appearance: calm, cooperative Behavior: regular eye contact Speech: regular rate and tone Mood: "okay" Affect: congruent to mood Thought Process: circumstantial Thought Content: denies HI's and AVH's Motor Activity: ambulatory Cognition: A/O x3 Insight: variable Judgment: variable Assessment and Plan Impression: Hx of Bipolar DO/Autism. DID. Today the patient is calm and cooperative during the assessment. Patient endorses SI's. DDx: R/O MDD Recommendation/Plan: Continue 1013 with placement pending at [facility]. Continue current home medication regimen.
[2017-08-02] MEDS: DESYREL PO SCH (22:28)
[2017-08-02] MEDS: COGENTIN PO SCH (22:29)
[2017-08-02 22:46] VITALS: BP 134/70
== END 2017-08-02 22:50 ==
LOC: ED 12:18 → EEVIPCON 12:18 → ED 08-02 22:50
DX: R45.851 Suicidal ideations (principal); R44.0 Auditory hallucinations; F31.9 Bipolar disorder, unspecified; F20.9 Schizophrenia, unspecified
CPT/HCPCS: 36415; 80048; 80164; 80307; 81001; 82150; 83690; 84075; 84450; 84460; 85025; 99285; G0480; 80320

== ENCOUNTER 2020-11-20 14:13 | Emergency (ER) | payer MEDICAID ==
[2020-11-20 15:46] VITALS: BP 113/68
[2020-11-20 16:33] LABS: Hematocrit 36.9 % (35.5-45.6); Mean Corpuscular HGB Conc 32 % (32-34); Mean Corpuscular Volume 94 fl (84-94); Platelet Count 251 K/mm3 (140-440); Red Blood Count 3.93 M/mm3 (3.65-5.03); Red Cell Distribution Width 14.4 % (13.2-15.2)
[2020-11-20 16:48] LABS: Blood Urea Nitrogen 10 mg/dL (9-20); Calcium 9.2 mg/dL (8.4-10.2); Hemolysis Index 1
[2020-11-20 16:49] LABS: BUN/Creatinine Ratio 17
--- NOTE | 2020-11-20 17:11 | Emergency Department Report ---
ED General Adult HPI - General Chief complaint: Psych Stated complaint: MENTAL HEALTH PUI?: No Time Seen by Provider: 11/20/20 16:55 Source: patient, RN notes reviewed, old records reviewed Mode of arrival: Ambulatory Limitations: No Limitations - History of Present Illness Initial comments: The patient was evaluated in the emergency department for symptoms described in the history of present illness. He/she was evaluated in the context of the global COVID-19 pandemic, which necessitated consideration that the patient might be at risk for infection with the virus that causes COVID-19. Institutional protocols and algorithms that pertain to the evaluation of patients at risk for COVID-19 are in a state of rapid change based on information released by regulatory bodies including the CDC and federal and state organizations. These policies and algorithms were followed during the patient's care in the emergency department. Please note that these policies, procedures and recommendations changed on a rapid basis. Psychiatry: Dr. Jacquelyn Scanlon This is a 25-year-old gentleman. Past medical history includes schizophrenia, depression, anxiety, bipolar, ADHD, ADD, autism spectrum/Asperger syndrome, gender identity disorder, and multiple personality disorder. Patient's caregiver: Ms. Amie Murcia; [phone] The patient is a 25-year-old gentleman. He tells me he identifies as male, and request to be addressed as Christopher. He was sent here by his caregiver for a psychiatric evaluation. As per his caregiver, over the past 3 to 4 days, he has been having erratic and odd behavior, such as leaving juice containers open, making strange movements, and endorsing hallucinations. However, he has not been violent, not homicidal, not suicidal, and has not tried to overdose on anything. His caregiver indicates he received his first Pfizer vaccination a few weeks ago, for Covid, and is due for his second round, on November 28 The patient himself denies physical pain. He admits to hallucinations. He will not specify or clarify the nature of those hallucinations. He denies physical pain at this time. He denies homicidality, suicidality, urinary symptoms, and denying overdose. He and his caregiver endorsed compliance with medications. -: days(s) Consistency: intermittent Improves with: none Worsens with: none Associated Symptoms: denies other symptoms - Related Data Home Medications Medication Instructions Recorded Confirmed Last Taken Divalproex ER [Depakote ER] 500 mg PO BID 06/02/14 12/20/19 1 Day Ago ~07/17/16 500 OLANzapine [Zyprexa] 20 mg PO BID 06/02/14 12/20/19 1 Day Ago ~07/17/16 20 Trazodone HCl [traZODone] 150 mg PO HS 06/02/14 12/20/19 1 Day Ago ~07/17/16 150 AtorvaSTATin [Lipitor] 20 mg PO QPM 06/06/15 12/20/19 1 Day Ago ~07/17/16 20 Benztropine [Cogentin] 2 mg PO BID 06/06/15 12/20/19 1 Day Ago ~07/17/16 2 Chlorpromazine HCl [chlorproMAZINE] 100 mg PO TID 06/06/15 12/20/19 1 Day Ago ~07/17/16 100 Docusate Sodium [Colace CAP] 100 mg PO BID PRN 06/06/15 12/20/19 1 Day Ago ~07/17/16 100 Mirtazapine [Remeron 30mg TAB] 30 mg PO QHS 06/06/15 12/20/19 1 Day Ago ~07/17/16 30 clonazePAM [KlonoPIN] 2 mg PO BID 06/06/15 12/20/19 1 Day Ago ~07/17/16 2 diphenhydrAMINE [Benadryl CAP] 50 mg PO QHS PRN 06/06/15 12/20/19 1 Day Ago ~07/17/16 50 Allergies Allergy/AdvReac Type Severity Reaction Status Date / Time No Known Allergies Allergy Verified 12/27/16 12:26 ED Review of Systems ROS: Stated complaint: MENTAL HEALTH Other details as noted in HPI Comment: All other systems reviewed and negative Psychiatric: as per HPI. denies: homicidal thoughts, suicidal thoughts ED Past Medical Hx - Past Medical History Previous Medical History?: Yes Hx Psychiatric Treatment: Yes (schizophrenia, depression, anxiety, bipolar, ADHD, ADD, multiple personalit) Additional medical history: Autism Spectrum-Asperger Syndrome. Gender Identity Disorder - Surgical History Past Surgical History?: Yes Additional Surgical History: R Wrist - Social History Smoking Status: Unknown if ever smoked - Medications Home Medications: Home Medications Medication Instructions Recorded Confirmed Last Taken Type Divalproex ER [Depakote ER] 500 mg PO BID 06/02/14 12/20/19 1 Day Ago History ~07/17/16 500 OLANzapine [Zyprexa] 20 mg PO BID 06/02/14 12/20/19 1 Day Ago History ~07/17/16 20 Trazodone HCl [traZODone] 150 mg PO HS 06/02/14 12/20/19 1 Day Ago History ~07/17/16 150 AtorvaSTATin [Lipitor] 20 mg PO QPM 06/06/15 12/20/19 1 Day Ago History ~07/17/16 20 Benztropine [Cogentin] 2 mg PO BID 06/06/15 12/20/19 1 Day Ago History ~07/17/16 2 Chlorpromazine HCl [chlorproMAZINE] 100 mg PO TID 06/06/15 12/20/19 1 Day Ago History ~07/17/16 100 Docusate Sodium [Colace CAP] 100 mg PO BID PRN 06/06/15 12/20/19 1 Day Ago History ~07/17/16 100 Mirtazapine [Remeron 30mg TAB] 30 mg PO QHS 06/06/15 12/20/19 1 Day Ago History ~07/17/16 30 clonazePAM [KlonoPIN] 2 mg PO BID 06/06/15 12/20/19 1 Day Ago History ~07/17/16 2 diphenhydrAMINE [Benadryl CAP] 50 mg PO QHS PRN 06/06/15 12/20/19 1 Day Ago History ~07/17/16 50 ED Physical Exam - General Limitations: No Limitations General appearance: alert, in no apparent distress - Head Head exam: Present: atraumatic, normocephalic - Eye Eye exam: Present: normal appearance, EOMI. Absent: nystagmus - ENT ENT exam: Present: normal exam, normal orophraynx, mucous membranes moist, normal external ear exam - Neck Neck exam: Present: normal inspection, full ROM. Absent: tenderness, meningismus - Respiratory Respiratory exam: Present: normal lung sounds bilaterally. Absent: respiratory distress, wheezes, rales, rhonchi, stridor, decreased breath sounds - Cardiovascular Cardiovascular Exam: Present: regular rate, normal rhythm, normal heart sounds. Absent: bradycardia, tachycardia, irregular rhythm, systolic murmur, diastolic murmur, rubs, gallop - GI/Abdominal GI/Abdominal exam: Present: soft, normal bowel sounds. Absent: distended, tenderness, guarding, rebound, rigid, pulsatile mass - Rectal Rectal exam: Present: deferred - Extremities Exam Extremities exam: Present: normal inspection (Nontender hyperpigmentation noted to the bilateral toes.), full ROM, other (2+ pulses noted in the bilateral upper and lower extremities. There is no palpable cord. negative Homans sign. Muscular compartments are soft. The pelvis is stable.). Absent: pedal edema, calf tenderness - Back Exam Back exam: Present: normal inspection, full ROM. Absent: tenderness, CVA tenderness (R), CVA tenderness (L), paraspinal tenderness, vertebral tenderness - Neurological Exam Neurological exam: Present: alert, oriented X3 (Patient is alert to name, month, year, location), other (No facial droop. Tongue midline. Extraocular movements intact bilaterally. Facial sensation intact to light touch in V1, V2, V3 distribution bilaterally. 5 and a 5 strength in 4 extremities. Sensation intact to light touch in 4 extremities.) - Psychiatric Psychiatric exam: Present: flat affect. Absent: homicidal ideation, suicidal ideation - Skin Skin exam: Present: warm, dry, intact, normal color. Absent: rash ED Course Vital Signs 11/20/20 15:42 Temperature 99.1 F Pulse Rate 79 Respiratory 18 Rate Blood Pressure 113/68 O2 Sat by Pulse 97 Oximetry - Reevaluation(s) Reevaluation #1: 11/20/20 17:10 Differential diagnosis, including but not limited to: Hallucinations, medical clearance for psychiatric examination, behavioral health screening examination Assessment and plan: 25-year-old gentleman, who is afebrile with reassuring vital signs, cooperative, pleasant, calm, not homicidal, not suicidal, who lives with a caregiver full-time, essentially sent here for psychiatric evaluation because of hallucinations. Patient does not appear to have an emergent medical condition present at this time. Psychiatric consultation is requested/mental health consultation requested to assist and recommendations regarding his his hallucinations. It is my opinion that at this time, the patient does not meet criteria for 1013 hold or involuntary hold, and he may follow-up with his outpatient primary care doctor, psychiatrist, or follow-up at one of our many local outpatient psychiatric facilities. Mental health evaluation is pending at this time Reevaluation #2: 11/20/20 17:59 Laboratory studies unremarkable. As expected, our psychiatric blocking machine tender is in agreement that this patient does not meet criteria for 1013 hold or involuntary hold. Patient given a meal tray and was able to eat without difficulty. He is medically and psychiatrically suitable for discharge in the care of his provider. He may follow-up as an outpatient ED Medical Decision Making - Lab Data Result diagrams: 11/20/20 16:02 11/20/20 16:02 Vital Signs 11/20/20 15:42 Temperature 99.1 F Pulse Rate 79 Respiratory 18 Rate Blood Pressure 113/68 O2 Sat by Pulse 97 Oximetry Lab Results 11/20/20 11/20/20 11/20/20 Range/Units 16:02 16:02 16:02 WBC (4.5-11.0) K/mm3 RBC (3.65-5.03) M/mm3 Hgb (11.8-15.2) gm/dl Hct (35.5-45.6) % MCV (84-94) fl MCH (28-32) pg MCHC (32-34) % RDW (13.2-15.2) % Plt Count (140-440) K/mm3 Sharp % (Auto) Baso % (Auto) Sodium 141 (137-145) mmol/L Potassium 4.8 (3.6-5.0) mmol/L Chloride 99.0 (98-107) mmol/L Carbon Dioxide 31 H (22-30) mmol/L Anion Gap 16 mmol/L BUN 10 (9-20) mg/dL Creatinine 0.6 L (0.8-1.3) mg/dL Estimated GFR > 60 ml/min BUN/Creatinine Ratio 17 % Glucose 80 (75-100) mg/dL Calcium 9.2 (8.4-10.2) mg/dL Salicylates < 0.3 L (2.8-20.0) mg/dL Acetaminophen 5.0 L (10.0-30.0) ug/mL Plasma/Serum Alcohol (0-0.07) % 11/20/20 11/20/20 Range/Units 16:02 16:02 WBC 12.9 H (4.5-11.0) K/mm3 RBC 3.93 (3.65-5.03) M/mm3 Hgb 12.0 (11.8-15.2) gm/dl Hct 36.9 (35.5-45.6) % MCV 94 (84-94) fl MCH 31 (28-32) pg MCHC 32 (32-34) % RDW 14.4 (13.2-15.2) % Plt Count 251 (140-440) K/mm3 Sharp % (Auto) Ceramic Painter Baso % (Auto) Ceramic Painter Sodium (137-145) mmol/L Potassium (3.6-5.0) mmol/L Chloride (98-107) mmol/L Carbon Dioxide (22-30) mmol/L Anion Gap mmol/L BUN (9-20) mg/dL Creatinine (0.8-1.3) mg/dL Estimated GFR ml/min BUN/Creatinine Ratio % Glucose (75-100) mg/dL Calcium (8.4-10.2) mg/dL Salicylates (2.8-20.0) mg/dL Acetaminophen (10.0-30.0) ug/mL Plasma/Serum Alcohol < 0.01 (0-0.07) % Critical care attestation.: If time is entered above; I have spent that time in minutes in the direct care of this critically ill patient, excluding procedure time. ED Disposition Clinical Impression: Encounter for behavioral health screening, Encounter for medical screening examination Disposition: TO HOME OR SELFCARE Is pt being admited?: No Does the pt Need Aspirin: No Condition: Good Additional Instructions: Pt can follow up with his current outpatient mental health provider Dr. Scanlon [phone]. If the pt begins to experience Si, HI or psychosis that is placing himself or others at risk, pt or caregiver can call the crisis line at , call 911 or go to the nearest ER. Please continue current outpatient medications. Please return to the emergency room right away with homicidality, suicidality, overdose, physical pain, or any new, worsened or different symptoms not present on the initial emergency room evaluation. Patient may electively present to any of our local psychiatric hospitals as an outpatient if he or his caregivers request additional psychiatric evaluation or consultation, the patient was seen in this emergency room today, and was not found to have an emergent medical condition that would preclude discharge as an outpatient, or outpatient psychiatric consultation and evaluation. Referrals: PRIMARY CARE, [Primary Care Provider] - 3-5 Days
[2020-11-20 20:52] LABS: Total Cells Counted 100
[2020-11-20 20:53] LABS: Large Platelets Rare; Platelet Estimate Consistent w Auto; RBC Morphology Normal
== END 2020-11-20 20:11 | disposition home or self-care (01) ==
LOC: ED 14:13
DX: F20.9 Schizophrenia, unspecified (principal); Z13.30 Encounter for screening examination for mental health and behavioral disorders, unspecified; Z00.00 Encounter for general adult medical examination without abnormal findings; F32.9 Major depressive disorder, single episode, unspecified; F41.9 Anxiety disorder, unspecified; Z98.890 Other specified postprocedural states
CPT/HCPCS: 36415; 80048; 80164; 80320; 82550; 85007; 85025; G0480

== ENCOUNTER 2021-02-15 22:51 | Emergency (ER) | payer MEDICAID ==
[2021-02-16 00:15] VITALS: BP 122/83
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
--- NOTE | 2021-02-16 01:31 | XRay Report ---
LEFT FOOT 2 VIEW(S) INDICATION / CLINICAL INFORMATION: b/l foot pain COMPARISON: None available. FINDINGS: BONES / JOINT(S): No acute fracture or subluxation. No significant arthritis. SOFT TISSUES: No significant abnormality. ADDITIONAL FINDINGS: Accessory type II navicular may be associated with posterior tibial tendon dysfu nction. Please correlate with point tenderness RIGHT FOOT 2 VIEW(S) INDICATION / CLINICAL INFORMATION: b/l foot pain COMPARISON: None available. FINDINGS: BONES / JOINT(S): No acute fracture or subluxation. No significant arthritis. SOFT TISSUES: No significant abnormality. ADDITIONAL FINDINGS: Accessory type II navicular may be associated with posterior tibial tendon dysfu nction. Please correlate with point tenderness Signer Name: Avinash Kam MD Signed: 02/16/2021 1:27 AM Workstation Name: [id number]
[2021-02-16 01:56] LABS: Blood Urea Nitrogen 11 mg/dL (9-20); Calcium 8.6 mg/dL (8.4-10.2); Hemolysis Index 1
[2021-02-16 02:09] LABS: BUN/Creatinine Ratio 16
[2021-02-16] MEDS ORDERED: diphenhydrAMINE 25 MG CAP PO STA (03:13)
[2021-02-16] MEDS ORDERED: IBUPROFEN 400 MG TAB PO ONE (03:13)
== END 2021-02-16 03:40 | disposition home health service (06) ==
LOC: ED 22:51
DX: M79.671 Pain in right foot (principal); M79.672 Pain in left foot; Z13.9 Encounter for screening, unspecified; Z13.30 Encounter for screening examination for mental health and behavioral disorders, unspecified; F20.9 Schizophrenia, unspecified; F41.8 Other specified anxiety disorders; F31.9 Bipolar disorder, unspecified; F90.9 Attention-deficit hyperactivity disorder, unspecified type; F44.81 Dissociative identity disorder; F84.5 Asperger's syndrome; F64.9 Gender identity disorder, unspecified; Z98.890 Other specified postprocedural states
CPT/HCPCS: 36415; 80048; 80164; 80320; 82550; 99284; G0480

== ENCOUNTER 2022-01-04 11:45 | Emergency (ER) | payer MEDICAID ==
--- NOTE | 2022-01-04 12:45 | Emergency Department Report ---
ED General Adult HPI - General Chief complaint: Psych Stated complaint: SI Time Seen by Provider: 01/04/22 12:36 Source: patient, EMS (Verbal report received from emergency medical services), RN notes reviewed, old records reviewed Mode of arrival: Stretcher Limitations: No Limitations - History of Present Illness Initial comments: The patient was evaluated in the emergency department for symptoms described in the history of present illness. He/she was evaluated in the context of the global COVID-19 pandemic, which necessitated consideration that the patient might be at risk for infection with the virus that causes COVID-19. Institutional protocols and algorithms that pertain to the evaluation of patients at risk for COVID-19 are in a state of rapid change based on information released by regulatory bodies including the CDC and federal and s [employer] organizations. These policies and algorithms were followed during the patient's care in the emergency department. Please note that these policies, procedures and recommendations changed on a rapid basis. This is a pleasant and cooperative 26-year-old male, who currently identifies as a male, with a past medical history of gender identity disorder, and multiple personality disorder, who presents to the department today with a request for long-term psychiatric hospitalization. He states that he has been previously today suicidal. He is not currently suicidal at this time. He denies h allucinations to myself. He denies physical pain at this time. He does report that he thinks he is masturbating too much with shampoo. He is COVID-19 vaccinated. As per collateral information obtained from mental health, patient was reportedly sent here on a 1013. His 1013 is not present for me to evaluate. Patient has reportedly made threatening statements prior to arrival. The patient states that he is agreeable to observation pending psychiatric consultation. -: Gradual Severity scale (0 -10): 0 Consistency: constant Improves with: none Worsens with: none Associated Symptoms: denies other symptoms - Related Data Home Medications Medication Instructions Recorded Confirmed Last Taken Divalproex ER [Depakote ER] 500 mg PO BID 06/02/14 12/20/19 1 Day Ago ~07/17/16 500 OLANzapine [Zyprexa] 20 mg PO BID 06/02/14 12/20/19 1 Day Ago ~07/17/16 20 Trazodone HCl [traZODone] 150 mg PO HS 06/02/14 12/20/19 1 Day Ago ~07/17/16 150 AtorvaSTATin [Lipitor] 20 mg PO QPM 06/06/15 12/20/19 1 Day Ago ~07/17/16 20 Benztropine [Cogentin] 2 mg PO BID 06/06/15 12/20/19 1 Day Ago ~07/17/16 2 Chlorpromazine HCl [chlorproMAZINE] 100 mg PO TID 06/06/15 12/20/19 1 Day Ago ~07/17/16 100 Docusate Sodium [Colace CAP] 100 mg PO BID PRN 06/06/15 12/20/19 1 Day Ago ~07/17/16 100 Mirtazapine [Remeron 30mg TAB] 30 mg PO QHS 06/06/15 12/20/19 1 Day Ago ~07/17/16 30 clonazePAM [KlonoPIN] 2 mg PO BID 06/06/15 12/20/19 1 Day Ago ~07/17/16 2 diphenhydrAMINE [Benadryl CAP] 50 mg PO QHS PRN 06/06/15 12/20/19 1 Day Ago ~07/17/16 50 Allergies Allergy/AdvReac Type Severity Reaction Status Date / Time No Known Allergies Allergy Verified 01/04/22 11:53 ED Review of Systems ROS: Stated complaint: SI Other details as noted in HPI Constitutional: denies: fever Eyes: denies: eye discharge ENT: denies: epistaxis Respiratory: denies: cough Cardiovascular: denies: chest pain Gastrointestinal: denies: abdominal pain Genitourinary: as per HPI Musculoskeletal: as per HPI Psychiatric: as per HPI, suicidal thoughts ED Past Medical Hx - Past Medical History Hx Psychiatric Treatment: Yes (schizophrenia, depression, anxiety, bipolar, ADHD, ADD, multiple personalit) Additional medical history: Autism Spectrum-Asperger Syndrome. Gender Identity Disorder - Surgical History Additional Surgical History: R Wrist - Social History Smoking Status: Never Smoker Substance Use Type: None - Medications Home Medications: Home Medications Medication Instructions Recorded Confirmed Last Taken Type Divalproex ER [Depakote ER] 500 mg PO BID 06/02/14 12/20/19 1 Day Ago History ~07/17/16 500 OLANzapine [Zyprexa] 20 mg PO BID 06/02/14 12/20/19 1 Day Ago History ~07/17/16 20 Trazodone HCl [traZODone] 150 mg PO HS 06/02/14 12/20/19 1 Day Ago History ~07/17/16 150 AtorvaSTATin [Lipitor] 20 mg PO QPM 06/06/15 12/20/19 1 Day Ago History ~07/17/16 20 Benztropine [Cogentin] 2 mg PO BID 06/06/15 12/20/19 1 Day Ago History ~07/17/16 2 Chlorpromazine HCl [chlorproMAZINE] 100 mg PO TID 06/06/15 12/20/19 1 Day Ago History ~07/17/16 100 Docusate Sodium [Colace CAP] 100 mg PO BID PRN 06/06/15 12/20/19 1 Day Ago History ~07/17/16 100 Mirtazapine [Remeron 30mg TAB] 30 mg PO QHS 06/06/15 12/20/19 1 Day Ago History ~07/17/16 30 clonazePAM [KlonoPIN] 2 mg PO BID 06/06/15 12/20/19 1 Day Ago History ~07/17/16 2 diphenhydrAMINE [Benadryl CAP] 50 mg PO QHS PRN 06/06/15 12/20/19 1 Day Ago History ~07/17/16 50 ED Physical Exam - General Limitations: No Limitations General appearance: alert, in no apparent distress - Head Head exam: Present: atraumatic, normocephalic - Eye Eye exam: Present: normal appearance, EOMI. Absent: nystagmus - ENT ENT exam: Present: normal exam, normal orophraynx, mucous membranes moist, normal external ear exam - Neck Neck exam: Present: normal inspection, full ROM. Absent: tenderness, meningismus - Respiratory Respiratory exam: Present: normal lung sounds bilaterally. Absent: respiratory distress, wheezes, rales, rhonchi, stridor, decreased breath sounds - Cardiovascular Cardiovascular Exam: Present: regular rate, normal rhythm, normal heart sounds. Absent: bradycardia, tachycardia, irregular rhythm, systolic murmur, diastolic murmur, rubs, gallop - GI/Abdominal GI/Abdominal exam: Present: soft. Absent: distended, tenderness, guarding, rebound, rigid, pulsatile mass - Rectal Rectal exam: Present: deferred - Extremities Exam Extremities exam: Present: normal inspection, full ROM, other (2+ pulses noted in the bilateral upper and lower extremities. There is no palpable cord. negative Homans sign. Muscular compartments are soft. The pelvis is stable.). Absent: pedal edema, calf tenderness - Back Exam Back exam: Present: normal inspection, full ROM. Absent: tenderness, CVA tenderness (R), CVA tenderness (L), paraspinal tenderness, vertebral tenderness - Neurological Exam Neurological exam: Present: alert, oriented X3, normal gait, other (No facial droop. Tongue midline. Extraocular movements intact bilaterally. Facial sensation intact to light touch in V1, V2, V3 distribution bilaterally. 5 and a 5 strength in 4 extremities. Sensation intact to light touch in 4 extremities.). Absent: motor sensory deficit - Psychiatric Psychiatric exam: Present: flat affect - Skin Skin exam: Present: warm, dry, intact, normal color. Absent: rash ED Course Vital Signs 01/04/22 01/04/22 01/04/22 11:47 12:54 13:40 Temperature 98.1 F Pulse Rate 90 Respiratory 18 Rate Blood Pressure 138/88 [Right] O2 Sat by Pulse 99 99 Oximetry 01/04/22 16:09 Temperature 98.9 F Pulse Rate 82 Respiratory 16 Rate Blood Pressure 133/82 [Right] O2 Sat by Pulse 100 Oximetry - Reevaluation(s) Reevaluation #1: 01/04/22 14:16 Differential diagnosis, including but not limited to: Encounter for behavioral health screening examination, encounter for medical screening examination Assessment and plan: 26-year-old gentleman, presenting with resolved suici dality, resolved threatening behavior. He is currently pleasant, calm and cooperative. He currently meets criteria for 1013 hold or involuntary confinement as per recommendations from our mental health skiver operator. The patient is agreeable to acquisition of appropriate laboratory studies, urinalysis, and COVID swab. Psychiatric consultation is requested. We will also request that nursing team reconcile home medications. We will reassess after his laboratory studies have resulted. Anticipate that this patient can be deemed medically suitable for psychiatric disposition rapidly. 01/04/22 17:31 Laboratory studies are unremarkable. At this point in time, this patient does not appear to have an immediate medical contraindication to psychiatric admission, evaluation, consultation and placement ED Medical Decision Making - Lab Data Result diagrams: 01/04/22 14:26 01/04/22 14:22 Vital Signs 01/04/22 01/04/22 01/04/22 11:47 12:54 13:40 Temperature 98.1 F Pulse Rate 90 Respiratory 18 Rate Blood Pressure 138/88 [Right] O2 Sat by Pulse 99 99 Oximetry Lab Results 01/04/22 01/04/22 01/04/22 Range/Units 14:22 14:22 14:22 WBC (4.5-11.0) K/mm3 RBC (3.65-5.03) M/mm3 Hgb (11.8-15.2) gm/dl Hct (35.5-45.6) % MCV (84-94) fl MCH (28-32) pg MCHC (32-34) % RDW (13.2-15.2) % Plt Count (140-440) K/mm3 Sodium 138 (137-145) mmol/L Potassium 4.4 (3.6-5.0) mmol/L Chloride 100.4 (98-107) mmol/L Carbon Dioxide 29 (22-30) mmol/L Anion Gap 13 mmol/L BUN 12 (9-20) mg/dL Creatinine 0.7 L (0.8-1.3) mg/dL Estimated GFR > 60 ml/min BUN/Creatinine Ratio 17 % Glucose 88 (75-100) mg/dL Calcium 9.5 (8.4-10.2) mg/dL Total Bilirubin 0.30 (0.1-1.2) mg/dL AST 15 (5-40) units/L ALT 7 (7-56) units/L Alkaline Phosphatase 90 (35-129) units/L Total Protein 7.1 (6.3-8.2) g/dL Albumin 4.2 (3.9-5) g/dL Albumin/Globulin Ratio 1.4 % Urine Color (Yellow) Urine Turbidity (Clear) Urine pH (5.0-7.0) Ur Specific [place] (1.003-1.030) Urine Protein (Negative) mg/dL Urine Glucose (UA) (Negative) mg/dL Urine Ketones (Negative) mg/dL Urine Blood (Negative) Urine Nitrite (Negative) Urine Bilirubin (Negative) Urine Urobilinogen (<2.0) mg/dL Ur Leukocyte Esterase (Negative) Urine RBC (Auto) (0.0-6.0) /HPF U Epithel Cells (Auto) (0-13.0) /HPF Salicylates < 0.3 L (2.8-20.0) mg/dL Urine Opiates Screen Urine Methadone Screen Acetaminophen 5.0 L (10.0-30.0) ug/mL Ur Barbiturates Screen Ur Phencyclidine Scrn Ur Amphetamines Screen U Benzodiazepines Scrn Urine Cocaine Screen U Marijuana (THC) Screen Drugs of Abuse Note Plasma/Serum Alcohol (0-0.07) % 01/04/22 01/04/22 01/04/22 Range/Units 14:22 14:26 Unknown WBC 12.4 H (4.5-11.0) K/mm3 RBC 4.69 (3.65-5.03) M/mm3 Hgb 13.9 (11.8-15.2) gm/dl Hct 43.1 (35.5-45.6) % MCV 92 (84-94) fl MCH 30 (28-32) pg MCHC 32 (32-34) % RDW 14.8 (13.2-15.2) % Plt Count 213 (140-440) K/mm3 Sodium (137-145) mmol/L Potassium (3.6-5.0) mmol/L Chloride (98-107) mmol/L Carbon Dioxide (22-30) mmol/L Anion Gap mmol/L BUN (9-20) mg/dL Creatinine (0.8-1.3) mg/dL Estimated GFR ml/min BUN/Creatinine Ratio % Glucose (75-100) mg/dL Calcium (8.4-10.2) mg/dL Total Bilirubin (0.1-1.2) mg/dL AST (5-40) units/L ALT (7-56) units/L Alkaline Phosphatase (35-129) units/L Total Protein (6.3-8.2) g/dL Albumin (3.9-5) g/dL Albumin/Globulin Ratio % Urine Color Straw (Yellow) Urine Turbidity Clear (Clear) Urine pH 6.5 (5.0-7.0) Ur Specific [place] 1.015 (1.003-1.030) Urine Protein <15 mg/dl (Negative) mg/dL Urine Glucose (UA) Negative (Negative) mg/dL Urine Ketones Negative (Negative) mg/dL Urine Blood Negative (Negative) Urine Nitrite Negative (Negative) Urine Bilirubin Negative (Negative) Urine Urobilinogen < 2.0 (<2.0) mg/dL Ur Leukocyte Esterase Negative (Negative) Urine RBC (Auto) 3.0 (0.0-6.0) /HPF U Epithel Cells (Auto) 1.0 (0-13.0) /HPF Salicylates (2.8-20.0) mg/dL Urine Opiates Screen Urine Methadone Screen Acetaminophen (10.0-30.0) ug/mL Ur Barbiturates Screen Ur Phencyclidine Scrn Ur Amphetamines Screen U Benzodiazepines Scrn Urine Cocaine Screen U Marijuana (THC) Screen Drugs of Abuse Note Plasma/Serum Alcohol < 0.01 (0-0.07) % 01/04/22 Range/Units Unknown WBC (4.5-11.0) K/mm3 RBC (3.65-5.03) M/mm3 Hgb (11.8-15.2) gm/dl Hct (35.5-45.6) % MCV (84-94) fl MCH (28-32) pg MCHC (32-34) % RDW (13.2-15.2) % Plt Count (140-440) K/mm3 Sodium (137-145) mmol/L Potassium (3.6-5.0) mmol/L Chloride (98-107) mmol/L Carbon Dioxide (22-30) mmol/L Anion Gap mmol/L BUN (9-20) mg/dL Creatinine (0.8-1.3) mg/dL Estimated GFR ml/min BUN/Creatinine Ratio % Glucose (75-100) mg/dL Calcium (8.4-10.2) mg/dL Total Bilirubin (0.1-1.2) mg/dL AST (5-40) units/L ALT (7-56) units/L Alkaline Phosphatase (35-129) units/L Total Protein (6.3-8.2) g/dL Albumin (3.9-5) g/dL Albumin/Globulin Ratio % Urine Color (Yellow) Urine Turbidity (Clear) Urine pH (5.0-7.0) Ur Specific [place] (1.003-1.030) Urine Protein (Negative) mg/dL Urine Glucose (UA) (Negative) mg/dL Urine Ketones (Negative) mg/dL Urine Blood (Negative) Urine Nitrite (Negative) Urine Bilirubin (Negative) Urine Urobilinogen (<2.0) mg/dL Ur Leukocyte Esterase (Negative) Urine RBC (Auto) (0.0-6.0) /HPF U Epithel Cells (Auto) (0-13.0) /HPF Salicylates (2.8-20.0) mg/dL Urine Opiates Screen Negative Urine Methadone Screen Negative Acetaminophen (10.0-30.0) ug/mL Ur Barbiturates Screen Negative Ur Phencyclidine Scrn Negative Ur Amphetamines Screen Negative U Benzodiazepines Scrn Negative Urine Cocaine Screen Negative U Marijuana (THC) Screen Negative Drugs of Abuse Note Disclamer Plasma/Serum Alcohol (0-0.07) % Critical care attestation.: If time is entered above; I have spent that time in minutes in the direct care of this critically ill patient, excluding procedure time. ED Disposition Clinical Impression: Encounter for behavioral health screening, Encounter for medical screening examination, Medical clearance for psychiatric admission Disposition: [address] [place] [address] Is pt being admited?: No Does the pt Need Aspirin: No Condition: Stable
[2022-01-04 14:59] LABS: Hematocrit 43.1 % (35.5-45.6); Hemoglobin 13.9 gm/dl (11.8-15.2); Mean Corpuscular HGB Conc 32 % (32-34); Mean Corpuscular Volume 92 fl (84-94); Platelet Count 213 K/mm3 (140-440); Red Blood Count 4.69 M/mm3 (3.65-5.03); Red Cell Distribution Width 14.8 % (13.2-15.2)
[2022-01-04 15:11] LABS: Alanine Aminotransferase 7 units/L (7-56); Albumin 4.2 g/dL (3.9-5); Blood Urea Nitrogen 12 mg/dL (9-20); Calcium 9.5 mg/dL (8.4-10.2); Hemolysis Index 3
[2022-01-04 16:19] LABS: BUN/Creatinine Ratio 17
[2022-01-04 16:47] LABS: Amphetamine Screen,Urine Negative; Benzodiazepines Screen,Urine Negative; Cannabinoid Screen,Urine Negative; Cocaine Screen,Urine Negative; Methadone Screen,Urine Negative; Opiate Screen,Urine Negative
[2022-01-04 17:03] LABS: Bilirubin,Urine Negative (Negative); Blood,Urine Negative (Negative); Color,Urine Straw (Yellow); PH,Urine 6.5 (5.0-7.0); Protein,Urine <15 mg/dL mg/dL (Negative); Urobilinogen,Urine < 2.0 mg/dL (<2.0)
[2022-01-04 17:13] LABS: Bacteria,Urine 1+ /HPF (Negative); Mucus,Urine FEW /HPF
--- NOTE | 2022-01-05 09:30 | Consultation ---
History of Present Illness - Reason for Consult Consult date: 01/05/22 Reason for consult: SI, hallucinations - History of Present Psychiatric Illness HPI: This is a pleasant and cooperative 26-year-old male, who currently identifies as a male, with a past medical history of gender identity disorder, and multiple personality disorder, who presents to the department today with a request for long-term psychiatric hospitalization. He states that he has been previously today suicidal. He is not currently suicidal at this time. He denies hallucinations to myself. He denies physical pain at this time. He does report that he thinks he is masturbating too much with shampoo. The patient was seen today. He is calm and cooperative. He says he came to the hospital because he "started freaking out and hearing voices telling him to do things sexual and suicidal things." The patient does endorse SI with a plan to "slash his throat." He says he also has "multiple personalities that has been bugging me." The patient says he lives in a Transitional Home. He could not tell me why. He did not know any of his meds. The patient denies any illicit drug use , alcohol or nicotine. PAST PSYCHIATRIC HISTORY: Diagnoses: Schizophrenia, multiple personality disorder Suicide attempts or Self-harm behavior: Yes Prior psychiatric hospitalizations: Yes Substance Abuse history: Denies Previous psychiatric medications tried: Could not recall Outpatient treatment: Yes PAST MEDICAL HISTORY: None reported Family Psychiatric History: None reported or documented SOCIAL HISTORY Marital Status: Single Living Arrangements: Transitional housing Employment Status: Disabled Access to guns/weapons: Denies Education: History of Abuse: Denies Legal History: Denies REVIEW OF SYSTEMS Constitutional: Negative for weight loss ENT: Negative for stridor Respiratory: Negative for cough or hemoptysis All other systems reviewed and are negative MENTAL STATUS EXAMINATION General Appearance and Behavior: Age appropriate, wearing appropriate clothes, cooperative, polite with questioning, fair eye contact Cooperation: cooperative Psychomotor Behavior: Psychomotor normal Mood: Depressed Affect and affective range: congruent with stated affect Thought Process: circumstantial Thought Content: hallucinations, SI Speech: Normal tone and pace Suicidal Ideation: Yes Homicidal Ideation: Denies Hallucination: Auditory Delusions: Yes Impulse Control: Limited Insight and Judgment: Poor Memory: Limited Attention: Distracted Orientation: Alert and oriented Diagnoses: Schizophrenia Treatment Plan 1013 Olanzapine 7.5mg po daily Doxepin 10mg po qhs Sitter: per primary Medical: Per primary Disposition: Recommend acute psychiatric inpatient treatment Will follow. Thanks Case staffed by Dr. Ramirez Medications and Allergies Allergies Allergy/AdvReac Type Severity Reaction Status Date / Time No Known Allergies Allergy Verified 01/04/22 11:53 Home Medications Medication Instructions Recorded Confirmed Last Taken Type Divalproex ER [Depakote ER] 500 mg PO BID 06/02/14 12/20/19 1 Day Ago History ~07/17/16 500 OLANzapine [Zyprexa] 20 mg PO BID 06/02/14 12/20/19 1 Day Ago History ~07/17/16 20 Trazodone HCl [traZODone] 150 mg PO HS 06/02/14 12/20/19 1 Day Ago History ~07/17/16 150 AtorvaSTATin [Lipitor] 20 mg PO QPM 06/06/15 12/20/19 1 Day Ago History ~07/17/16 20 Benztropine [Cogentin] 2 mg PO BID 06/06/15 12/20/19 1 Day Ago History ~07/17/16 2 Chlorpromazine HCl [chlorproMAZINE] 100 mg PO TID 06/06/15 12/20/19 1 Day Ago History ~07/17/16 100 Docusate Sodium [Colace CAP] 100 mg PO BID PRN 06/06/15 12/20/19 1 Day Ago History ~07/17/16 100 Mirtazapine [Remeron 30mg TAB] 30 mg PO QHS 06/06/15 12/20/19 1 Day Ago History ~07/17/16 30 clonazePAM [KlonoPIN] 2 mg PO BID 06/06/15 12/20/19 1 Day Ago History ~07/17/16 2 diphenhydrAMINE [Benadryl CAP] 50 mg PO QHS PRN 06/06/15 12/20/19 1 Day Ago History ~07/17/16 50 Mental Status Exam - Vital signs Last Vital Signs Temp 98.4 F 01/05/22 09:17 Pulse 96 H 01/05/22 09:17 Resp 20 01/05/22 09:17 BP 135/86 01/05/22 09:17 Pulse Ox 100 01/05/22 09:18 Results Result Diagrams: 01/04/22 14:26 07/06/22 14:22 Abnormal lab results 01/04/22 01/04/22 01/04/22 Range/Units 14:22 14:22 14:22 WBC (4.5-11.0) K/mm3 Creatinine 0.7 L (0.8-1.3) mg/dL Salicylates < 0.3 L (2.8-20.0) mg/dL Acetaminophen 5.0 L (10.0-30.0) ug/mL 01/04/22 Range/Units 14:26 WBC 12.4 H (4.5-11.0) K/mm3 Creatinine (0.8-1.3) mg/dL Salicylates (2.8-20.0) mg/dL Acetaminophen (10.0-30.0) ug/mL All other labs normal.
[2022-01-05] MEDS ORDERED: ZIPRASIDONE MESYLATE 20 MG VIAL IM ONE (10:08)
--- NOTE | 2022-01-05 11:43 | Event Note ---
Date: 01/05/22 Patient currently calm and cooperative. He was assessed by mental health today. Recommended inpatient treatment. Awaiting placement.
[2022-01-05] MEDS: DOXEPIN 10 MG CAP PO SCH (22:04)
[2022-01-06] MEDS: LORazepam 1 MG TAB PO PRN (17:31)
--- NOTE | 2022-01-06 17:58 | Progress Note ---
Subjective - Reason for Consult Reason for consult: SI - Chief Complaint Chief complaint: 01/06/2022: Patient seen today, was calm and cooperative. Patient states " i don't know why i am here" States that he would like to go home as he is much calmer. Patient states that he did not sleep very well during the night, but his appetite is ok. Patient denies SI/HI at this time. History of Present Illness - Reason for Consult Consult date: 01/05/22 Reason for consult: SI, hallucinations - History of Present Psychiatric Illness HPI: This is a pleasant and cooperative 26-year-old male, who currently identifies as a male, with a past medical history of gender identity disorder, and multiple personality disorder, who presents to the department today with a request for long-term psychiatric hospitalization. He states that he has been previously today suicidal. He is not currently suicidal at this time. He denies hallucinations to myself. He denies physical pain at this time. He does report that he thinks he is masturbating too much with shampoo. The patient was seen today. He is calm and cooperative. He says he came to the hospital because he "started freaking out and hearing voices telling him to do things sexual and suicidal things." The patient does endorse SI with a plan to "slash his throat." He says he also has "multiple personalities that has been bugging me." The patient says he lives in a Transitional Home. He could not tell me why. He did not know any of his meds. The patient denies any illicit drug use, alcohol or nicotine. PAST PSYCHIATRIC HISTORY: Diagnoses: Schizophrenia, multiple personality disorder Suicide attempts or Self-harm behavior: Yes Prior psychiatric hospitalizations: Yes Substance Abuse history: Denies Previous psychiatric medications tried: Could not recall Outpatient treatment: Yes PAST MEDICAL HISTORY: None reported Family Psychiatric History: None reported or documented SOCIAL HISTORY Marital Status: Single Living Arrangements: Transitional housing Employment Status: Disabled Access to guns/weapons: Denies Education: History of Abuse: Denies Legal History: Denies REVIEW OF SYSTEMS Constitutional: Negative for weight loss ENT: Negative for stridor Respiratory: Negative for cough or hemoptysis All other systems reviewed and are negative MENTAL STATUS EXAMINATION General Appearance and Behavior: Age appropriate, wearing appropriate clothes, cooperative, polite with questioning, fair eye contact Cooperation: cooperative Psychomotor Behavior: Psychomotor normal Mood: Depressed Affect and affective range: congruent with stated affect Thought Process: circumstantial Thought Content: hallucinations, SI Speech: Normal tone and pace Suicidal Ideation: Yes Homicidal Ideation: Denies Hallucination: Auditory Delusions: Yes Impulse Control: Limited Insight and Judgment: Poor Memory: Limited Attention: Distracted Orientation: Alert and oriented Diagnoses: Schizophrenia Treatment Plan 1013 Olanzapine 7.5mg po daily Doxepin 10mg po qhs Sitter: per primary Medical: Per primary Disposition: Recommend acute psychiatric inpatient treatment Will follow. Thanks Case staffed by Dr. Ramirez Medications and Allergies Allergies Allergy/AdvReac Type Severity Reaction Status Date / Time No Known Allergies Allergy Verified 01/04/22 11:53 Home Medications Medication Instructions Recorded Confirmed Last Taken Type Divalproex ER [Depakote ER] 500 mg PO BID 06/02/14 12/20/19 1 Day Ago History ~07/17/16 500 OLANzapine [Zyprexa] 20 mg PO BID 06/02/14 12/20/19 1 Day Ago History ~07/17/16 20 Trazodone HCl [traZODone] 150 mg PO HS 06/02/14 12/20/19 1 Day Ago History ~07/17/16 150 AtorvaSTATin [Lipitor] 20 mg PO QPM 06/06/15 12/20/19 1 Day Ago History ~07/17/16 20 Benztropine [Cogentin] 2 mg PO BID 06/06/15 12/20/19 1 Day Ago History ~07/17/16 2 Chlorpromazine HCl [chlorproMAZINE] 100 mg PO TID 06/06/15 12/20/19 1 Day Ago History ~07/17/16 100 Docusate Sodium [Colace CAP] 100 mg PO BID PRN 06/06/15 12/20/19 1 Day Ago History ~07/17/16 100 Mirtazapine [Remeron 30mg TAB] 30 mg PO QHS 06/06/15 12/20/19 1 Day Ago History ~07/17/16 30 clonazePAM [KlonoPIN] 2 mg PO BID 06/06/15 12/20/19 1 Day Ago History ~07/17/16 2 diphenhydrAMINE [Benadryl CAP] 50 mg PO QHS PRN 06/06/15 12/20/19 1 Day Ago History ~07/17/16 50 Mental Status Exam Mental Status Exam - Vital signs Last Vital Signs Temp 98.2 F 01/06/22 10:00 Pulse 90 01/06/22 10:00 Resp 18 01/06/22 10:00 BP 157/98 01/06/22 10:00 Pulse Ox 100 01/06/22 11:24
[2022-01-06] MEDS: DOXEPIN 10 MG CAP PO SCH (22:08)
[2022-01-07] MEDS: LORazepam 1 MG TAB PO PRN (08:51)
[2022-01-07] MEDS: LORazepam 2 MG/ML VIAL IM PRN (14:35)
[2022-01-07] MEDS: HALOPERIDOL LACTATE 5 MG/1 ML INJ IM PRN (14:35)
--- NOTE | 2022-01-07 14:50 | Progress Note ---
Subjective - Reason for Consult Consult date: 01/07/22 Reason for consult: MHE - Chief Complaint Chief complaint: 01/07/2022: Patient seen today. Patient sitting and stating that hi "memory is christiano whacked out". Patient states that one of his multiple personalities" took over" him and took off his clothes. Patient kept rambling and states that "it's not me doing it" and he doesn't feel safe. Patient states that he is having SI thoughts and had a plan to "slash neck" or jump in front of a "moving vehicle". Patient will continue with current medications while awaiting to be transferred for inpatient treatment. 01/06/2022: Patient seen today, was calm and cooperative. Patient states " i don't know why i am here" States that he would like to go home as he is much calmer. Patient states that he did not sleep very well during the night, but his appetite is ok. Patient denies SI/HI at this time. History of Present Illness - Reason for Consult Consult date: 01/05/22 Reason for consult: SI, hallucinations - History of Present Psychiatric Illness HPI: This is a pleasant and cooperative 26-year-old male, who currently identifies as a male, with a past medical history of gender identity disorder, and multiple personality disorder, who presents to the department today with a request for long-term psychiatric hospitalization. He states that he has been previously today suicidal. He is not currently suicidal at this time. He denies hallucinations to myself. He denies physical pain at this time. He does report that he thinks he is masturbating too much with shampoo. The patient was seen today. He is calm and cooperative. He says he came to the hospital because he "started freaking out and hearing voices telling him to do things sexual and suicidal things." The patient does endorse SI with a plan to "slash his throat." He says he also has "multiple personalities that has been bugging me." The patient says he lives in a Transitional Home. He could not tell me why. He did not know any of his meds. The patient denies any illicit drug use, alcohol or nicotine. PAST PSYCHIATRIC HISTORY: Diagnoses: Schizophrenia, multiple personality disorder Suicide attempts or Self-harm behavior: Yes Prior psychiatric hospitalizations: Yes Substance Abuse history: Denies Previous psychiatric medications tried: Could not recall Outpatient treatment: Yes PAST MEDICAL HISTORY: None reported Family Psychiatric History: None reported or documented SOCIAL HISTORY Marital Status: Single Living Arrangements: Transitional housing Employment Status: Disabled Access to guns/weapons: Denies Education: History of Abuse: Denies Legal History: Denies REVIEW OF SYSTEMS Constitutional: Negative for weight loss ENT: Negative for stridor Respiratory: Negative for cough or hemoptysis All other systems reviewed and are negative MENTAL STATUS EXAMINATION General Appearance and Behavior: Age appropriate, wearing appropriate clothes, cooperative, polite with questioning, fair eye contact Cooperation: cooperative Psychomotor Behavior: Psychomotor normal Mood: Depressed Affect and affective range: congruent with stated affect Thought Process: circumstantial Thought Content: hallucinations, SI Speech: Normal tone and pace Suicidal Ideation: Yes Homicidal Ideation: Denies Hallucination: Auditory Delusions: Yes Impulse Control: Limited Insight and Judgment: Poor Memory: Limited Attention: Distracted Orientation: Alert and oriented Diagnoses: Schizophrenia Treatment Plan 1013 Olanzapine 7.5mg po daily Doxepin 10mg po qhs Sitter: per primary Medical: Per primary Disposition: Recommend acute psychiatric inpatient treatment Will follow. Thanks Case staffed by Dr. Ramirez Medications and Allergies Allergies Allergy/AdvReac Type Severity Reaction Status Date / Time No Known Allergies Allergy Verified 01/04/22 11:53 Home Medications Medication Instructions Recorded Confirmed Last Taken Type Divalproex ER [Depakote ER] 500 mg PO BID 06/02/14 12/20/19 1 Day Ago History ~07/17/16 500 OLANzapine [Zyprexa] 20 mg PO BID 06/02/14 12/20/19 1 Day Ago History ~07/17/16 20 Trazodone HCl [traZODone] 150 mg PO HS 06/02/14 12/20/19 1 Day Ago History ~07/17/16 150 AtorvaSTATin [Lipitor] 20 mg PO QPM 06/06/15 12/20/19 1 Day Ago History ~07/17/16 20 Benztropine [Cogentin] 2 mg PO BID 06/06/15 12/20/19 1 Day Ago History ~07/17/16 2 Chlorpromazine HCl [chlorproMAZINE] 100 mg PO TID 06/06/15 12/20/19 1 Day Ago History ~07/17/16 100 Docusate Sodium [Colace CAP] 100 mg PO BID PRN 06/06/15 12/20/19 1 Day Ago History ~07/17/16 100 Mirtazapine [Remeron 30mg TAB] 30 mg PO QHS 06/06/15 12/20/19 1 Day Ago History ~07/17/16 30 clonazePAM [KlonoPIN] 2 mg PO BID 06/06/15 12/20/19 1 Day Ago History ~07/17/16 2 diphenhydrAMINE [Benadryl CAP] 50 mg PO QHS PRN 06/06/15 12/20/19 1 Day Ago History ~07/17/16 50 Mental Status Exam Mental Status Exam - Vital signs Last Vital Signs Temp 98.5 F 01/07/22 08:58 Pulse 108 H 01/07/22 08:58 Resp 18 01/07/22 08:58 BP 169/94 01/07/22 08:58 Pulse Ox 100 01/07/22 08:58
--- NOTE | 2022-01-07 16:49 | Event Note ---
Date: 01/07/22 The patient is seen and examined [id number] is performed. He has superficial scratches and abrasions to his upper extremity. He is agitated. As needed medications ordered. The patient was deemed medically suitable for psychiatric placement and disposition during my initial ER evaluation. He still continues to remain suitable for psychiatric placement and disposition at this time. He did eat breakfast and go to the bathroom. He reportedly inserted a toothbrush in his rectum, and subsequently removed it without difficulty. There was no pain described, and no blood noted. The toothbrush did not break The patient remains medically suitable at this time for psychiatric placement and disposition. Vital Signs 01/04/22 01/04/22 01/04/22 11:47 12:54 13:40 Temperature 98.1 F Pulse Rate 90 Respiratory 18 Rate Blood Pressure 138/88 [Right] O2 Sat by Pulse 99 99 Oximetry 01/04/22 01/04/22 01/05/22 16:09 21:37 04:55 Temperature 98.9 F 98.8 F Pulse Rate 82 85 85 Respiratory 16 18 18 Rate Blood Pressure 133/82 144/65 142/68 [Right] O2 Sat by Pulse 100 99 99 Oximetry 01/05/22 01/05/22 01/06/22 09:17 09:18 05:23 Temperature 98.4 F Pulse Rate 96 H Respiratory 20 Rate Blood Pressure 135/86 [Right] O2 Sat by Pulse 100 100 100 Oximetry 01/06/22 01/06/22 01/06/22 10:00 11:24 20:02 Temperature 98.2 F 99.0 F Pulse Rate 90 98 H Respiratory 18 18 Rate Blood Pressure 157/98 147/93 [Right] O2 Sat by Pulse 98 100 96 Oximetry 01/06/22 01/07/22 01/07/22 22:53 08:29 08:58 Temperature 98.5 F Pulse Rate 108 H Respiratory 18 Rate Blood Pressure 169/94 [Right] O2 Sat by Pulse 99 97 100 Oximetry 01/07/22 15:55 Temperature 98.6 F Pulse Rate 106 H Respiratory 18 Rate Blood Pressure 131/93 [Right] O2 Sat by Pulse 95 Oximetry Lab Results 01/04/22 01/04/22 01/04/22 Range/Units 14:22 14:22 14:22 WBC (4.5-11.0) K/mm3 RBC (3.65-5.03) M/mm3 Hgb (11.8-15.2) gm/dl Hct (35.5-45.6) % MCV (84-94) fl MCH (28-32) pg MCHC (32-34) % RDW (13.2-15.2) % Plt Count (140-440) K/mm3 Sodium 138 (137-145) mmol/L Potassium 4.4 (3.6-5.0) mmol/L Chloride 100.4 (98-107) mmol/L Carbon Dioxide 29 (22-30) mmol/L Anion Gap 13 mmol/L BUN 12 (9-20) mg/dL Creatinine 0.7 L (0.8-1.3) mg/dL Estimated GFR > 60 ml/min BUN/Creatinine Ratio 17 % Glucose 88 (75-100) mg/dL Calcium 9.5 (8.4-10.2) mg/dL Total Bilirubin 0.30 (0.1-1.2) mg/dL AST 15 (5-40) units/L ALT 7 (7-56) units/L Alkaline Phosphatase 90 (35-129) units/L Total Protein 7.1 (6.3-8.2) g/dL Albumin 4.2 (3.9-5) g/dL Albumin/Globulin Ratio 1.4 % Urine Color (Yellow) Urine Turbidity (Clear) Urine pH (5.0-7.0) Ur Specific [place] (1.003-1.030) Urine Protein (Negative) mg/dL Urine Glucose (UA) (Negative) mg/dL Urine Ketones (Negative) mg/dL Urine Blood (Negative) Urine Nitrite (Negative) Urine Bilirubin (Negative) Urine Urobilinogen (<2.0) mg/dL Ur Leukocyte Esterase (Negative) Urine WBC (Auto) (0.0-6.0) /HPF Urine RBC (Auto) (0.0-6.0) /HPF U Epithel Cells (Auto) (0-13.0) /HPF Urine Bacteria (Auto) (Negative) /HPF Urine Mucus /HPF Salicylates < 0.3 L (2.8-20.0) mg/dL Urine Opiates Screen Urine Methadone Screen Acetaminophen 5.0 L (10.0-30.0) ug/mL Ur Barbiturates Screen Ur Phencyclidine Scrn Ur Amphetamines Screen U Benzodiazepines Scrn Urine Cocaine Screen U Marijuana (THC) Screen Drugs of Abuse Note Plasma/Serum Alcohol (0-0.07) % SARS-CoV-2 (PCR) (Negative) 01/04/22 01/04/22 01/04/22 Range/Units 14:22 14:26 Unknown WBC 12.4 H (4.5-11.0) K/mm3 RBC 4.69 (3.65-5.03) M/mm3 Hgb 13.9 (11.8-15.2) gm/dl Hct 43.1 (35.5-45.6) % MCV 92 (84-94) fl MCH 30 (28-32) pg MCHC 32 (32-34) % RDW 14.8 (13.2-15.2) % Plt Count 213 (140-440) K/mm3 Sodium (137-145) mmol/L Potassium (3.6-5.0) mmol/L Chloride (98-107) mmol/L Carbon Dioxide (22-30) mmol/L Anion Gap mmol/L BUN (9-20) mg/dL Creatinine (0.8-1.3) mg/dL Estimated GFR ml/min BUN/Creatinine Ratio % Glucose (75-100) mg/dL Calcium (8.4-10.2) mg/dL Total Bilirubin (0.1-1.2) mg/dL AST (5-40) units/L ALT (7-56) units/L Alkaline Phosphatase (35-129) units/L Total Protein (6.3-8.2) g/dL Albumin (3.9-5) g/dL Albumin/Globulin Ratio % Urine Color Straw (Yellow) Urine Turbidity Clear (Clear) Urine pH 6.5 (5.0-7.0) Ur Specific [place] 1.015 (1.003-1.030) Urine Protein <15 mg/dl (Negative) mg/dL Urine Glucose (UA) Negative (Negative) mg/dL Urine Ketones Negative (Negative) mg/dL Urine Blood Negative (Negative) Urine Nitrite Negative (Negative) Urine Bilirubin Negative (Negative) Urine Urobilinogen < 2.0 (<2.0) mg/dL Ur Leukocyte Esterase Negative (Negative) Urine WBC (Auto) 5.0 (0.0-6.0) /HPF Urine RBC (Auto) 3.0 (0.0-6.0) /HPF U Epithel Cells (Auto) 1.0 (0-13.0) /HPF Urine Bacteria (Auto) 1+ (Negative) /HPF Urine Mucus Few /HPF Salicylates (2.8-20.0) mg/dL Urine Opiates Screen Urine Methadone Screen Acetaminophen (10.0-30.0) ug/mL Ur Barbiturates Screen Ur Phencyclidine Scrn Ur Amphetamines Screen U Benzodiazepines Scrn Urine Cocaine Screen U Marijuana (THC) Screen Drugs of Abuse Note Plasma/Serum Alcohol < 0.01 (0-0.07) % SARS-CoV-2 (PCR) (Negative) 01/04/22 01/05/22 Range/Units Unknown 09:04 WBC (4.5-11.0) K/mm3 RBC (3.65-5.03) M/mm3 Hgb (11.8-15.2) gm/dl Hct (35.5-45.6) % MCV (84-94) fl MCH (28-32) pg MCHC (32-34) % RDW (13.2-15.2) % Plt Count (140-440) K/mm3 Sodium (137-145) mmol/L Potassium (3.6-5.0) mmol/L Chloride (98-107) mmol/L Carbon Dioxide (22-30) mmol/L Anion Gap mmol/L BUN (9-20) mg/dL Creatinine (0.8-1.3) mg/dL Estimated GFR ml/min BUN/Creatinine Ratio % Glucose (75-100) mg/dL Calcium (8.4-10.2) mg/dL Total Bilirubin (0.1-1.2) mg/dL AST (5-40) units/L ALT (7-56) units/L Alkaline Phosphatase (35-129) units/L Total Protein (6.3-8.2) g/dL Albumin (3.9-5) g/dL Albumin/Globulin Ratio % Urine Color (Yellow) Urine Turbidity (Clear) Urine pH (5.0-7.0) Ur Specific [place] (1.003-1.030) Urine Protein (Negative) mg/dL Urine Glucose (UA) (Negative) mg/dL Urine Ketones (Negative) mg/dL Urine Blood (Negative) Urine Nitrite (Negative) Urine Bilirubin (Negative) Urine Urobilinogen (<2.0) mg/dL Ur Leukocyte Esterase (Negative) Urine WBC (Auto) (0.0-6.0) /HPF Urine RBC (Auto) (0.0-6.0) /HPF U Epithel Cells (Auto) (0-13.0) /HPF Urine Bacteria (Auto) (Negative) /HPF Urine Mucus /HPF Salicylates (2.8-20.0) mg/dL Urine Opiates Screen Negative Urine Methadone Screen Negative Acetaminophen (10.0-30.0) ug/mL Ur Barbiturates Screen Negative Ur Phencyclidine Scrn Negative Ur Amphetamines Screen Negative U Benzodiazepines Scrn Negative Urine Cocaine Screen Negative U Marijuana (THC) Screen Negative Drugs of Abuse Note Disclamer Plasma/Serum Alcohol (0-0.07) % SARS-CoV-2 (PCR) Negative (Negative)
[2022-01-07] MEDS: DOXEPIN 10 MG CAP PO SCH (22:09)
--- NOTE | 2022-01-08 14:21 | Progress Note ---
Subjective - Reason for Consult Reason for consult: E - Chief Complaint Chief complaint: 01/08/2022: Patient seen today in the quiet room. Patient states that " he feels "Horrible" but "cant remember anything". Patient states that his appetite is good and slept "some" during the night. Patient denies any SI/HI at this time. 01/07/2022: Patient seen today. Patient sitting and stating that hi "memory is christiano whacked out". Patient states that one of his multiple personalities" took over" him and took off his clothes. Patient kept rambling and states that "it's not me doing it" and he doesn't feel safe. Patient states that he is having SI thoughts and had a plan to "slash neck" or jump in front of a "moving vehicle". Patient will continue with current medications while awaiting to be transferred for inpatient treatment. 01/06/2022: Patient seen today, was calm and cooperative. Patient states " i don't know why i am here" States that he would like to go home as he is much calmer. Patient states that he did not sleep very well during the night, but his appetite is ok. Patient denies SI/HI at this time. History of Present Illness - Reason for Consult Consult date: 01/05/22 Reason for consult: SI, hallucinations - History of Present Psychiatric Illness HPI: This is a pleasant and cooperative 26-year-old male, who currently identifies as a male, with a past medical history of gender identity disorder, and multiple personality disorder, who presents to the department today with a request for long-term psychiatric hospitalization. He states that he has been previously today suicidal. He is not currently suicidal at this time. He denies hallucinations to myself. He denies physical pain at this time. He does report that he thinks he is masturbating too much with shampoo. The patient was seen today. He is calm and cooperative. He says he came to the hospital because he "started freaking out and hearing voices telling him to do things sexual and suicidal things." The patient does endorse SI with a plan to "slash his throat." He says he also has "multiple personalities that has been bugging me." The patient says he lives in a Transitional Home. He could not tell me why. He did not know any of his meds. The patient denies any illicit drug use, alcohol or nicotine. PAST PSYCHIATRIC HISTORY: Diagnoses: Schizophrenia, multiple personality disorder Suicide attempts or Self-harm behavior: Yes Prior psychiatric hospitalizations: Yes Substance Abuse history: Denies Previous psychiatric medications tried: Could not recall Outpatient treatment: Yes PAST MEDICAL HISTORY: None reported Family Psychiatric History: None reported or documented SOCIAL HISTORY Marital Status: Single Living Arrangements: Transitional housing Employment Status: Disabled Access to guns/weapons: Denies Education: History of Abuse: Denies Legal History: Denies REVIEW OF SYSTEMS Constitutional: Negative for weight loss ENT: Negative for stridor Respiratory: Negative for cough or hemoptysis All other systems reviewed and are negative MENTAL STATUS EXAMINATION General Appearance and Behavior: Age appropriate, wearing appropriate clothes, cooperative, polite with questioning, fair eye contact Cooperation: cooperative Psychomotor Behavior: Psychomotor normal Mood: Depressed Affect and affective range: congruent with stated affect Thought Process: circumstantial Thought Content: hallucinations, SI Speech: Normal tone and pace Suicidal Ideation: Yes Homicidal Ideation: Denies Hallucination: Auditory Delusions: Yes Impulse Control: Limited Insight and Judgment: Poor Memory: Limited Attention: Distracted Orientation: Alert and oriented Diagnoses: Schizophrenia Treatment Plan 1013 Olanzapine 7.5mg po daily Doxepin 10mg po qhs Sitter: per primary Medical: Per primary Disposition: Recommend acute psychiatric inpatient treatment Will follow. Thanks Case staffed by Dr. Ramirez Medications and Allergies Allergies Allergy/AdvReac Type Severity Reaction Status Date / Time No Known Allergies Allergy Verified 01/04/22 11:53 Home Medications Medication Instructions Recorded Confirmed Last Taken Type Divalproex ER [Depakote ER] 500 mg PO BID 06/02/14 12/20/19 1 Day Ago History ~07/17/16 500 OLANzapine [Zyprexa] 20 mg PO BID 06/02/14 12/20/19 1 Day Ago History ~07/17/16 20 Trazodone HCl [traZODone] 150 mg PO HS 06/02/14 12/20/19 1 Day Ago History ~07/17/16 150 AtorvaSTATin [Lipitor] 20 mg PO QPM 06/06/15 12/20/19 1 Day Ago History ~07/17/16 20 Benztropine [Cogentin] 2 mg PO BID 06/06/15 12/20/19 1 Day Ago History ~07/17/16 2 Chlorpromazine HCl [chlorproMAZINE] 100 mg PO TID 06/06/15 12/20/19 1 Day Ago History ~07/17/16 100 Docusate Sodium [Colace CAP] 100 mg PO BID PRN 06/06/15 12/20/19 1 Day Ago History ~07/17/16 100 Mirtazapine [Remeron 30mg TAB] 30 mg PO QHS 06/06/15 12/20/19 1 Day Ago History ~07/17/16 30 clonazePAM [KlonoPIN] 2 mg PO BID 06/06/15 12/20/19 1 Day Ago History ~07/17/16 2 diphenhydrAMINE [Benadryl CAP] 50 mg PO QHS PRN 06/06/15 12/20/19 1 Day Ago History ~07/17/16 50 Mental Status Exam Mental Status Exam - Vital signs Last Vital Signs Temp 97.4 F L 01/08/22 09:18 Pulse 100 H 01/08/22 09:18 Resp 18 01/08/22 09:18 BP 139/89 01/08/22 09:18 Pulse Ox 100 01/08/22 09:18
--- NOTE | 2022-01-08 15:32 | Event Note ---
Date: 01/08/22 Patient is seen and examined. He is resting comfortably on the floor and in no acute distress. Patient has been endorsing multiple personalities to nursing staff and treating psychiatric staff. Patient today has been cooperative and nonviolent. He remains medically suitable for psychiatric placement and disposition at this time. Psychiatric recommendations are reviewed and appreciated. Nursing team reports that patient ate breakfast and went to the bathroom without incident Vital Signs 01/04/22 01/04/22 01/04/22 11:47 12:54 13:40 Temperature 98.1 F Pulse Rate 90 Respiratory 18 Rate Blood Pressure 138/88 [Right] O2 Sat by Pulse 99 99 Oximetry 01/04/22 01/04/22 01/05/22 16:09 21:37 04:55 Temperature 98.9 F 98.8 F Pulse Rate 82 85 85 Respiratory 16 18 18 Rate Blood Pressure 133/82 144/65 142/68 [Right] O2 Sat by Pulse 100 99 99 Oximetry 01/05/22 01/05/22 01/06/22 09:17 09:18 05:23 Temperature 98.4 F Pulse Rate 96 H Respiratory 20 Rate Blood Pressure 135/86 [Right] O2 Sat by Pulse 100 100 100 Oximetry 01/06/22 01/06/22 01/06/22 10:00 11:24 20:02 Temperature 98.2 F 99.0 F Pulse Rate 90 98 H Respiratory 18 18 Rate Blood Pressure 157/98 147/93 [Right] O2 Sat by Pulse 98 100 96 Oximetry 01/06/22 01/07/22 01/07/22 22:53 08:29 08:58 Temperature 98.5 F Pulse Rate 108 H Respiratory 18 Rate Blood Pressure 169/94 [Right] O2 Sat by Pulse 99 97 100 Oximetry 01/07/22 01/07/22 01/08/22 15:55 20:58 04:30 Temperature 98.6 F 97.8 F 98.8 F Pulse Rate 106 H 87 78 Respiratory 18 16 18 Rate Blood Pressure 131/93 125/89 142/90 [Right] O2 Sat by Pulse 95 96 96 Oximetry 01/08/22 09:18 Temperature 97.4 F L Pulse Rate 100 H Respiratory 18 Rate Blood Pressure 139/89 [Right] O2 Sat by Pulse 100 Oximetry
[2022-01-08] MEDS: DOXEPIN 10 MG CAP PO SCH (22:29)
[2022-01-09] MEDS: LORazepam 2 MG/ML VIAL IM PRN (14:18)
--- NOTE | 2022-01-09 15:25 | Progress Note ---
Subjective - Reason for Consult Reason for consult: MHE - Chief Complaint Chief complaint: 01/09/2022: Patient seen today in the ER. Patient cooperative and states "i guess i an ok" Patient states that he has been sleeping good and his appetite okay. Patient denies any SI/HI, also denies hearing voices. 01/08/2022: Patient seen today in the quiet room. Patient states that " he feels "Horrible" but "cant remember anything". Patient states that his appetite is good and slept "some" during the night. Patient denies any SI/HI at this time. 01/07/2022: Patient seen today. Patient sitting and stating that hi "memory is christiano whacked out". Patient states that one of his multiple personalities" took over" him and took off his clothes. Patient kept rambling and states that "it's not me doing it" and he doesn't feel safe. Patient states that he is having SI thoughts and had a plan to "slash neck" or jump in front of a "moving vehicle". Patient will continue with current medications while awaiting to be transferred for inpatient treatment. 01/06/2022: Patient seen today, was calm and cooperative. Patient states " i don't know why i am here" States that he would like to go home as he is much calmer. Patient states that he did not sleep very well during the night, but his appetite is ok. Patient denies SI/HI at this time. History of Present Illness - Reason for Consult Consult date: 01/05/22 Reason for consult: SI, hallucinations - History of Present Psychiatric Illness HPI: This is a pleasant and cooperative 26-year-old male, who currently identifies as a male, with a past medical history of gender identity disorder, and multiple personality disorder, who presents to the department today with a request for long-term psychiatric hospitalization. He states that he has been previously today suicidal. He is not currently suicidal at this time. He denies hallucinations to myself. He denies physical pain at this time. He does report that he thinks he is masturbating too much with shampoo. The patient was seen today. He is calm and cooperative. He says he came to the hospital because he "started freaking out and hearing voices telling him to do things sexual and suicidal things." The patient does endorse SI with a plan to "slash his throat." He says he also has "multiple personalities that has been bugging me." The patient says he lives in a Transitional Home. He could not tell me why. He did not know any of his meds. The patient denies any illicit drug use, alcohol or nicotine. PAST PSYCHIATRIC HISTORY: Diagnoses: Schizophrenia, multiple personality disorder Suicide attempts or Self-harm behavior: Yes Prior psychiatric hospitalizations: Yes Substance Abuse history: Denies Previous psychiatric medications tried: Could not recall Outpatient treatment: Yes PAST MEDICAL HISTORY: None reported Family Psychiatric History: None reported or documented SOCIAL HISTORY Marital Status: Single Living Arrangements: Transitional housing Employment Status: Disabled Access to guns/weapons: Denies Education: History of Abuse: Denies Legal History: Denies REVIEW OF SYSTEMS Constitutional: Negative for weight loss ENT: Negative for stridor Respiratory: Negative for cough or hemoptysis All other systems reviewed and are negative MENTAL STATUS EXAMINATION General Appearance and Behavior: Age appropriate, wearing appropriate clothes, cooperative, polite with questioning, fair eye contact Cooperation: cooperative Psychomotor Behavior: Psychomotor normal Mood: Depressed Affect and affective range: congruent with stated affect Thought Process: circumstantial Thought Content: hallucinations, SI Speech: Normal tone and pace Suicidal Ideation: Yes Homicidal Ideation: Denies Hallucination: Auditory Delusions: Yes Impulse Control: Limited Insight and Judgment: Poor Memory: Limited Attention: Distracted Orientation: Alert and oriented Diagnoses: Schizophrenia Treatment Plan 1013 Olanzapine 7.5mg po daily Doxepin 10mg po qhs Sitter: per primary Medical: Per primary Disposition: Recommend acute psychiatric inpatient treatment Will follow. Thanks Case staffed by Dr. Ramirez Medications and Allergies Allergies Allergy/AdvReac Type Severity Reaction Status Date / Time No Known Allergies Allergy Verified 01/04/22 11:53 Home Medications Medication Instructions Recorded Confirmed Last Taken Type Divalproex ER [Depakote ER] 500 mg PO BID 06/02/14 12/20/19 1 Day Ago History ~07/17/16 500 OLANzapine [Zyprexa] 20 mg PO BID 06/02/14 12/20/19 1 Day Ago History ~07/17/16 20 Trazodone HCl [traZODone] 150 mg PO HS 06/02/14 12/20/19 1 Day Ago History ~07/17/16 150 AtorvaSTATin [Lipitor] 20 mg PO QPM 06/06/15 12/20/19 1 Day Ago History ~07/17/16 20 Benztropine [Cogentin] 2 mg PO BID 06/06/15 12/20/19 1 Day Ago History ~07/17/16 2 Chlorpromazine HCl [chlorproMAZINE] 100 mg PO TID 06/06/15 12/20/19 1 Day Ago History ~07/17/16 100 Docusate Sodium [Colace CAP] 100 mg PO BID PRN 06/06/15 12/20/19 1 Day Ago History ~07/17/16 100 Mirtazapine [Remeron 30mg TAB] 30 mg PO QHS 06/06/15 12/20/19 1 Day Ago History ~07/17/16 30 clonazePAM [KlonoPIN] 2 mg PO BID 06/06/15 12/20/19 1 Day Ago History ~07/17/16 2 diphenhydrAMINE [Benadryl CAP] 50 mg PO QHS PRN 06/06/15 12/20/19 1 Day Ago History ~07/17/16 50 Mental Status Exam Mental Status Exam - Vital signs Last Vital Signs Temp 98.6 F 01/09/22 11:13 Pulse 100 H 01/09/22 11:13 Resp 18 01/09/22 11:13 BP 129/97 01/09/22 11:13 Pulse Ox 97 01/09/22 11:14
[2022-01-09] MEDS: DOXEPIN 10 MG CAP PO SCH (21:52)
[2022-01-10] MEDS: HALOPERIDOL LACTATE 5 MG/1 ML INJ IM PRN ×2 (14:06→22:27)
[2022-01-10] MEDS: LORazepam 2 MG/ML VIAL IM PRN ×2 (14:06→22:29)
--- NOTE | 2022-01-10 16:10 | Event Note ---
Date: 01/10/22 I evaluated the patient today. States he is feeling sleepy. Also reports hearing voices whispering to him telling him to do bad things. He is in no acute distress.
--- NOTE | 2022-01-10 16:46 | Progress Note ---
Subjective - Reason for Consult Consult date: 01/10/22 Reason for consult: MHE - Chief Complaint Chief complaint: 01/10/2022: Patient seen today. Patient states that he is still hearing voices. Patient awaiting placement. 01/09/2022: Patient seen today in the ER. Patient cooperative and states "i guess i an ok" Patient states that he has been sleeping good and his appetite okay. Patient denies any SI/HI, also denies hearing voices. 01/08/2022: Patient seen today in the quiet room. Patient states that " he feels "Horrible" but "cant remember anything". Patient states that his appetite is good and slept "some" during the night. Patient denies any SI/HI at this time. 01/07/2022: Patient seen today. Patient sitting and stating that hi "memory is christiano whacked out". Patient states that one of his multiple personalities" took over" him and took off his clothes. Patient kept rambling and states that "it's not me doing it" and he doesn't feel safe. Patient states that he is having SI thoughts and had a plan to "slash neck" or jump in front of a "moving vehicle". Patient will continue with current medications while awaiting to be transferred for inpatient treatment. 01/06/2022: Patient seen today, was calm and cooperative. Patient states " i don't know why i am here" States that he would like to go home as he is much calmer. Patient states that he did not sleep very well during the night, but his appetite is ok. Patient denies SI/HI at this time. History of Present Illness - Reason for Consult Consult date: 01/05/22 Reason for consult: SI, hallucinations - History of Present Psychiatric Illness HPI: This is a pleasant and cooperative 26-year-old male, who currently identifies as a male, with a past medical history of gender identity disorder, and multiple personality disorder, who presents to the department today with a request for long-term psychiatric hospitalization. He states that he has been previously today suicidal. He is not currently suicidal at this time. He denies hallucinations to myself. He denies physical pain at this time. He does report that he thinks he is masturbating too much with shampoo. The patient was seen today. He is calm and cooperative. He says he came to the hospital because he "started freaking out and hearing voices telling him to do things sexual and suicidal things." The patient does endorse SI with a plan to "slash his throat." He says he also has "multiple personalities that has been bugging me." The patient says he lives in a Transitional Home. He could not tell me why. He did not know any of his meds. The patient denies any illicit drug use, alcohol or nicotine. PAST PSYCHIATRIC HISTORY: Diagnoses: Schizophrenia, multiple personality disorder Suicide attempts or Self-harm behavior: Yes Prior psychiatric hospitalizations: Yes Substance Abuse history: Denies Previous psychiatric medications tried: Could not recall Outpatient treatment: Yes PAST MEDICAL HISTORY: None reported Family Psychiatric History: None reported or documented SOCIAL HISTORY Marital Status: Single Living Arrangements: Transitional housing Employment Status: Disabled Access to guns/weapons: Denies Education: History of Abuse: Denies Legal History: Denies REVIEW OF SYSTEMS Constitutional: Negative for weight loss ENT: Negative for stridor Respiratory: Negative for cough or hemoptysis All other systems reviewed and are negative MENTAL STATUS EXAMINATION General Appearance and Behavior: Age appropriate, wearing appropriate clothes, cooperative, polite with questioning, fair eye contact Cooperation: cooperative Psychomotor Behavior: Psychomotor normal Mood: Depressed Affect and affective range: congruent with stated affect Thought Process: circumstantial Thought Content: hallucinations, SI Speech: Normal tone and pace Suicidal Ideation: Yes Homicidal Ideation: Denies Hallucination: Auditory Delusions: Yes Impulse Control: Limited Insight and Judgment: Poor Memory: Limited Attention: Distracted Orientation: Alert and oriented Diagnoses: Schizophrenia Treatment Plan 1013 Olanzapine 7.5mg po daily Doxepin 10mg po qhs Sitter: per primary Medical: Per primary Disposition: Recommend acute psychiatric inpatient treatment Will follow. Thanks Case staffed by Dr. Ramirez Medications and Allergies Allergies Allergy/AdvReac Type Severity Reaction Status Date / Time No Known Allergies Allergy Verified 01/04/22 11:53 Home Medications Medication Instructions Recorded Confirmed Last Taken Type Divalproex ER [Depakote ER] 500 mg PO BID 06/02/14 12/20/19 1 Day Ago History ~07/17/16 500 OLANzapine [Zyprexa] 20 mg PO BID 06/02/14 12/20/19 1 Day Ago History ~07/17/16 20 Trazodone HCl [traZODone] 150 mg PO HS 06/02/14 12/20/19 1 Day Ago History ~07/17/16 150 AtorvaSTATin [Lipitor] 20 mg PO QPM 06/06/15 12/20/19 1 Day Ago History ~07/17/16 20 Benztropine [Cogentin] 2 mg PO BID 06/06/15 12/20/19 1 Day Ago History ~07/17/16 2 Chlorpromazine HCl [chlorproMAZINE] 100 mg PO TID 06/06/15 12/20/19 1 Day Ago History ~07/17/16 100 Docusate Sodium [Colace CAP] 100 mg PO BID PRN 06/06/15 12/20/19 1 Day Ago History ~07/17/16 100 Mirtazapine [Remeron 30mg TAB] 30 mg PO QHS 06/06/15 12/20/19 1 Day Ago History ~07/17/16 30 clonazePAM [KlonoPIN] 2 mg PO BID 06/06/15 12/20/19 1 Day Ago History ~07/17/16 2 diphenhydrAMINE [Benadryl CAP] 50 mg PO QHS PRN 06/06/15 12/20/19 1 Day Ago History ~07/17/16 50 Mental Status Exam Mental Status Exam - Vital signs Last Vital Signs Temp 98.0 F 01/10/22 08:33 Pulse 90 01/10/22 08:33 Resp 18 01/10/22 08:33 BP 145/86 01/10/22 08:33 Pulse Ox 98 01/10/22 08:33
[2022-01-10] MEDS: DOXEPIN 10 MG CAP PO SCH (22:26)
[2022-01-10] MEDS: LORazepam 1 MG TAB PO PRN (22:27)
--- NOTE | 2022-01-11 11:35 | Event Note ---
Date: 01/11/22 I HAVE SEEN THE PATIENT MYSELF WHO CURRENTLY DENIES SI/HI OR HALLUCINATION. PATIENT WILL BE ADMITTED TO INPATIENT [facility]. PATIENT HIMSELF STATES HE FEES LIKE HE NEED HELP. PENDING FOR PATIENT TO BE TRANSFERRED TO INPATIENT [facility]. Mack LASSITER
--- NOTE | 2022-01-11 15:29 | Progress Note ---
Subjective - Reason for Consult Consult date: 01/11/22 Reason for consult: MHE - Chief Complaint Chief complaint: Subjective - DATE SEEN: 01/11/22 Patient seen today. Patient states he is "Still out of it". Patient admits to having Auditory and Visual hallucinations. Patient states "i am scared of living in the society" due to his "multiple personalities". Patient states that he is having SI thoughts, that are telling him to "kill myself". Patient denies any HI at this time. Patient still awaiting placement at this time, will continue to follow. 01/10/2022: Patient seen today. Patient states that he is still hearing voices. Patient awaiting placement. 01/09/2022: Patient seen today in the ER. Patient cooperative and states "i guess i an ok" Patient states that he has been sleeping good and his appetite okay. Patient denies any SI/HI, also denies hearing voices. 01/08/2022: Patient seen today in the quiet room. Patient states that " he feels "Horrible" but "cant remember anything". Patient states that his appetite is good and slept "some" during the night. Patient denies any SI/HI at this time. 01/07/2022: Patient seen today. Patient sitting and stating that hi "memory is christiano whacked out". Patient states that one of his multiple personalities" took over" him and took off his clothes. Patient kept rambling and states that "it's not me doing it" and he doesn't feel safe. Patient states that he is having SI thoughts and had a plan to "slash neck" or jump in front of a "moving vehicle". Patient will continue with current medications while awaiting to be transferred for inpatient treatment. 01/06/2022: Patient seen today, was calm and cooperative. Patient states " i don't know why i am here" States that he would like to go home as he is much calmer. Patient states that he did not sleep very well during the night, but his appetite is ok. Patient denies SI/HI at this time. History of Present Illness - Reason for Consult Consult date: 01/05/22 Reason for consult: SI, hallucinations - History of Present Psychiatric Illness HPI: This is a pleasant and cooperative 26-year-old male, who currently identifies as a male, with a past medical history of gender identity disorder, and multiple personality disorder, who presents to the department today with a request for long-term psychiatric hospitalization. He states that he has been previously today suicidal. He is not currently suicidal at this time. He denies hallucinations to myself. He denies physical pain at this time. He does report that he thinks he is masturbating too much with shampoo. The patient was seen today. He is calm and cooperative. He says he came to the hospital because he "started freaking out and hearing voices telling him to do things sexual and suicidal things." The patient does endorse SI with a plan to "slash his throat." He says he also has "multiple personalities that has been bugging me." The patient says he lives in a Transitional Home. He could not tell me why. He did not know any of his meds. The patient denies any illicit drug use, alcohol or nicotine. PAST PSYCHIATRIC HISTORY: Diagnoses: Schizophrenia, multiple personality disorder Suicide attempts or Self-harm behavior: Yes Prior psychiatric hospitalizations: Yes Substance Abuse history: Denies Previous psychiatric medications tried: Could not recall Outpatient treatment: Yes PAST MEDICAL HISTORY: None reported Family Psychiatric History: None reported or documented SOCIAL HISTORY Marital Status: Single Living Arrangements: Transitional housing Employment Status: Disabled Access to guns/weapons: Denies Education: History of Abuse: Denies Legal History: Denies REVIEW OF SYSTEMS Constitutional: Negative for weight loss ENT: Negative for stridor Respiratory: Negative for cough or hemoptysis All other systems reviewed and are negative MENTAL STATUS EXAMINATION General Appearance and Behavior: Age appropriate, wearing appropriate clothes, cooperative, polite with questioning, fair eye contact Cooperation: cooperative Psychomotor Behavior: Psychomotor normal Mood: Depressed Affect and affective range: congruent with stated affect Thought Process: circumstantial Thought Content: hallucinations, SI Speech: Normal tone and pace Suicidal Ideation: Yes Homicidal Ideation: Denies Hallucination: Auditory Delusions: Yes Impulse Control: Limited Insight and Judgment: Poor Memory: Limited Attention: Distracted Orientation: Alert and oriented Diagnoses: Schizophrenia Treatment Plan 1013 Olanzapine 7.5mg po daily Doxepin 10mg po qhs Sitter: per primary Medical: Per primary Disposition: Recommend acute psychiatric inpatient treatment Will follow. Thanks Case staffed by Dr. Ramirez Medications and Allergies Allergies Allergy/AdvReac Type Severity Reaction Status Date / Time No Known Allergies Allergy Verified 01/04/22 11:53 Home Medications Medication Instructions Recorded Confirmed Last Taken Type Divalproex ER [Depakote ER] 500 mg PO BID 06/02/14 12/20/19 1 Day Ago History ~07/17/16 500 OLANzapine [Zyprexa] 20 mg PO BID 06/02/14 12/20/19 1 Day Ago History ~07/17/16 20 Trazodone HCl [traZODone] 150 mg PO HS 06/02/14 12/20/19 1 Day Ago History ~07/17/16 150 AtorvaSTATin [Lipitor] 20 mg PO QPM 06/06/15 12/20/19 1 Day Ago History ~07/17/16 20 Benztropine [Cogentin] 2 mg PO BID 06/06/15 12/20/19 1 Day Ago History ~07/17/16 2 Chlorpromazine HCl [chlorproMAZINE] 100 mg PO TID 06/06/15 12/20/19 1 Day Ago History ~07/17/16 100 Docusate Sodium [Colace CAP] 100 mg PO BID PRN 06/06/15 12/20/19 1 Day Ago History ~07/17/16 100 Mirtazapine [Remeron 30mg TAB] 30 mg PO QHS 06/06/15 12/20/19 1 Day Ago History ~07/17/16 30 clonazePAM [KlonoPIN] 2 mg PO BID 06/06/15 12/20/19 1 Day Ago History ~07/17/16 2 diphenhydrAMINE [Benadryl CAP] 50 mg PO QHS PRN 06/06/15 12/20/19 1 Day Ago History ~07/17/16 50 Mental Status Exam Mental Status Exam - Vital signs Last Vital Signs Temp 99.1 F 01/10/22 20:08 Pulse 98 H 01/10/22 20:08 Resp 20 01/10/22 20:08 BP 149/103 01/10/22 20:08 Pulse Ox 98 01/10/22 20:10
[2022-01-11] MEDS: LORazepam 1 MG TAB PO PRN (18:39)
[2022-01-11] MEDS: HALOPERIDOL LACTATE 5 MG/1 ML INJ IM PRN (19:30)
[2022-01-12 08:55] VITALS: BP 154/88
[2022-01-12] MEDS: HALOPERIDOL LACTATE 5 MG/1 ML INJ IM PRN (10:17)
--- NOTE | 2022-01-12 12:37 | Event Note ---
Date: 01/12/22 The patient was evaluated in the emergency department for symptoms described in the history of present illness. He/she was evaluated in the context of the global COVID-19 pandemic, which necessitated consideration that the patient might be at risk for infection with the virus that causes COVID-19. Institutional protocols and algorithms that pertain to the evaluation of patients at risk for COVID-19 are in a state of rapid change based on information released by regulatory bodies including the CDC and federal and state organizations. These policies and algorithms were followed during the patient's care in the emergency department. Please note that these policies, procedures and recommendations changed on a rapid basis. Laboratory studies, vital signs, nursing documentation, ER documentation, and psychiatric documentation are reviewed and appreciated. Nursing team reports no acute events this morning or concerns. The patient is awake and ambulating and does not appear to be in any acute distress. The patient was deemed medically suitable for psychiatric disposition and placement during his initial ER evaluation. The patient continues to remain medically suitable for psychiatric placement and disposition. He is currently pending psychiatric placement. Patient remains pleasant, calm and cooperative at this time. Vital Signs 01/04/22 01/04/22 01/04/22 11:47 12:54 13:40 Temperature 98.1 F Pulse Rate 90 Respiratory 18 Rate Blood Pressure 138/88 [Right] O2 Sat by Pulse 99 99 Oximetry 01/04/22 01/04/22 01/05/22 16:09 21:37 04:55 Temperature 98.9 F 98.8 F Pulse Rate 82 85 85 Respiratory 16 18 18 Rate Blood Pressure 133/82 144/65 142/68 [Right] O2 Sat by Pulse 100 99 99 Oximetry 01/05/22 01/05/22 01/06/22 09:17 09:18 05:23 Temperature 98.4 F Pulse Rate 96 H Respiratory 20 Rate Blood Pressure 135/86 [Right] O2 Sat by Pulse 100 100 100 Oximetry 01/06/22 01/06/22 01/06/22 10:00 11:24 20:02 Temperature 98.2 F 99.0 F Pulse Rate 90 98 H Respiratory 18 18 Rate Blood Pressure 157/98 147/93 [Right] O2 Sat by Pulse 98 100 96 Oximetry 01/06/22 01/07/22 01/07/22 22:53 08:29 08:58 Temperature 98.5 F Pulse Rate 108 H Respiratory 18 Rate Blood Pressure 169/94 [Right] O2 Sat by Pulse 99 97 100 Oximetry 01/07/22 01/07/22 01/08/22 15:55 20:58 04:30 Temperature 98.6 F 97.8 F 98.8 F Pulse Rate 106 H 87 78 Respiratory 18 16 18 Rate Blood Pressure 131/93 125/89 142/90 [Right] O2 Sat by Pulse 95 96 96 Oximetry 01/08/22 01/08/22 01/08/22 09:18 17:05 22:45 Temperature 97.4 F L 98.7 F 98.9 F Pulse Rate 100 H 93 H 90 Respiratory 18 18 18 Rate Blood Pressure 139/89 132/88 152/95 [Right] O2 Sat by Pulse 100 100 97 Oximetry 01/09/22 01/09/22 01/09/22 11:13 11:14 20:57 Temperature 98.6 F 98.9 F Pulse Rate 100 H 109 H Respiratory 18 16 Rate Blood Pressure 129/97 152/98 [Right] O2 Sat by Pulse 97 97 96 Oximetry 01/10/22 01/10/22 01/10/22 04:21 08:33 20:08 Temperature 97.6 F 98.0 F 99.1 F Pulse Rate 83 90 98 H Respiratory 18 18 20 Rate Blood Pressure 145/90 145/86 149/103 [Right] O2 Sat by Pulse 96 98 Oximetry 01/10/22 01/11/22 01/12/22 20:10 17:23 08:54 Temperature 98.6 F Pulse Rate 100 H 95 H Respiratory 18 18 Rate Blood Pressure 140/91 154/88 [Right] O2 Sat by Pulse 98 99 96 Oximetry 01/12/22 08:56 Temperature Pulse Rate Respiratory Rate Blood Pressure [Right] O2 Sat by Pulse 96 Oximetry Lab Results 01/04/22 01/04/22 01/04/22 Range/Units 14:22 14:22 14:22 WBC (4.5-11.0) K/mm3 RBC (3.65-5.03) M/mm3 Hgb (11.8-15.2) gm/dl Hct (35.5-45.6) % MCV (84-94) fl MCH (28-32) pg MCHC (32-34) % RDW (13.2-15.2) % Plt Count (140-440) K/mm3 Sodium 138 (137-145) mmol/L Potassium 4.4 (3.6-5.0) mmol/L Chloride 100.4 (98-107) mmol/L Carbon Dioxide 29 (22-30) mmol/L Anion Gap 13 mmol/L BUN 12 (9-20) mg/dL Creatinine 0.7 L (0.8-1.3) mg/dL Estimated GFR > 60 ml/min BUN/Creatinine Ratio 17 % Glucose 88 (75-100) mg/dL Calcium 9.5 (8.4-10.2) mg/dL Total Bilirubin 0.30 (0.1-1.2) mg/dL AST 15 (5-40) units/L ALT 7 (7-56) units/L Alkaline Phosphatase 90 (35-129) units/L Total Protein 7.1 (6.3-8.2) g/dL Albumin 4.2 (3.9-5) g/dL Albumin/Globulin Ratio 1.4 % Urine Color (Yellow) Urine Turbidity (Clear) Urine pH (5.0-7.0) Ur Specific [place] (1.003-1.030) Urine Protein (Negative) mg/dL Urine Glucose (UA) (Negative) mg/dL Urine Ketones (Negative) mg/dL Urine Blood (Negative) Urine Nitrite (Negative) Urine Bilirubin (Negative) Urine Urobilinogen (<2.0) mg/dL Ur Leukocyte Esterase (Negative) Urine WBC (Auto) (0.0-6.0) /HPF Urine RBC (Auto) (0.0-6.0) /HPF U Epithel Cells (Auto) (0-13.0) /HPF Urine Bacteria (Auto) (Negative) /HPF Urine Mucus /HPF Salicylates < 0.3 L (2.8-20.0) mg/dL Urine Opiates Screen Urine Methadone Screen Acetaminophen 5.0 L (10.0-30.0) ug/mL Ur Barbiturates Screen Ur Phencyclidine Scrn Ur Amphetamines Screen U Benzodiazepines Scrn Urine Cocaine Screen U Marijuana (THC) Screen Drugs of Abuse Note Plasma/Serum Alcohol (0-0.07) % SARS-CoV-2 (PCR) (Negative) 01/04/22 01/04/22 01/04/22 Range/Units 14:22 14:26 Unknown WBC 12.4 H (4.5-11.0) K/mm3 RBC 4.69 (3.65-5.03) M/mm3 Hgb 13.9 (11.8-15.2) gm/dl Hct 43.1 (35.5-45.6) % MCV 92 (84-94) fl MCH 30 (28-32) pg MCHC 32 (32-34) % RDW 14.8 (13.2-15.2) % Plt Count 213 (140-440) K/mm3 Sodium (137-145) mmol/L Potassium (3.6-5.0) mmol/L Chloride (98-107) mmol/L Carbon Dioxide (22-30) mmol/L Anion Gap mmol/L BUN (9-20) mg/dL Creatinine (0.8-1.3) mg/dL Estimated GFR ml/min BUN/Creatinine Ratio % Glucose (75-100) mg/dL Calcium (8.4-10.2) mg/dL Total Bilirubin (0.1-1.2) mg/dL AST (5-40) units/L ALT (7-56) units/L Alkaline Phosphatase (35-129) units/L Total Protein (6.3-8.2) g/dL Albumin (3.9-5) g/dL Albumin/Globulin Ratio % Urine Color Straw (Yellow) Urine Turbidity Clear (Clear) Urine pH 6.5 (5.0-7.0) Ur Specific [place] 1.015 (1.003-1.030) Urine Protein <15 mg/dl (Negative) mg/dL Urine Glucose (UA) Negative (Negative) mg/dL Urine Ketones Negative (Negative) mg/dL Urine Blood Negative (Negative) Urine Nitrite Negative (Negative) Urine Bilirubin Negative (Negative) Urine Urobilinogen < 2.0 (<2.0) mg/dL Ur Leukocyte Esterase Negative (Negative) Urine WBC (Auto) 5.0 (0.0-6.0) /HPF Urine RBC (Auto) 3.0 (0.0-6.0) /HPF U Epithel Cells (Auto) 1.0 (0-13.0) /HPF Urine Bacteria (Auto) 1+ (Negative) /HPF Urine Mucus Few /HPF Salicylates (2.8-20.0) mg/dL Urine Opiates Screen Urine Methadone Screen Acetaminophen (10.0-30.0) ug/mL Ur Barbiturates Screen Ur Phencyclidine Scrn Ur Amphetamines Screen U Benzodiazepines Scrn Urine Cocaine Screen U Marijuana (THC) Screen Drugs of Abuse Note Plasma/Serum Alcohol < 0.01 (0-0.07) % SARS-CoV-2 (PCR) (Negative) 01/04/22 01/05/22 Range/Units Unknown 09:04 WBC (4.5-11.0) K/mm3 RBC (3.65-5.03) M/mm3 Hgb (11.8-15.2) gm/dl Hct (35.5-45.6) % MCV (84-94) fl MCH (28-32) pg MCHC (32-34) % RDW (13.2-15.2) % Plt Count (140-440) K/mm3 Sodium (137-145) mmol/L Potassium (3.6-5.0) mmol/L Chloride (98-107) mmol/L Carbon Dioxide (22-30) mmol/L Anion Gap mmol/L BUN (9-20) mg/dL Creatinine (0.8-1.3) mg/dL Estimated GFR ml/min BUN/Creatinine Ratio % Glucose (75-100) mg/dL Calcium (8.4-10.2) mg/dL Total Bilirubin (0.1-1.2) mg/dL AST (5-40) units/L ALT (7-56) units/L Alkaline Phosphatase (35-129) units/L Total Protein (6.3-8.2) g/dL Albumin (3.9-5) g/dL Albumin/Globulin Ratio % Urine Color (Yellow) Urine Turbidity (Clear) Urine pH (5.0-7.0) Ur Specific [place] (1.003-1.030) Urine Protein (Negative) mg/dL Urine Glucose (UA) (Negative) mg/dL Urine Ketones (Negative) mg/dL Urine Blood (Negative) Urine Nitrite (Negative) Urine Bilirubin (Negative) Urine Urobilinogen (<2.0) mg/dL Ur Leukocyte Esterase (Negative) Urine WBC (Auto) (0.0-6.0) /HPF Urine RBC (Auto) (0.0-6.0) /HPF U Epithel Cells (Auto) (0-13.0) /HPF Urine Bacteria (Auto) (Negative) /HPF Urine Mucus /HPF Salicylates (2.8-20.0) mg/dL Urine Opiates Screen Negative Urine Methadone Screen Negative Acetaminophen (10.0-30.0) ug/mL Ur Barbiturates Screen Negative Ur Phencyclidine Scrn Negative Ur Amphetamines Screen Negative U Benzodiazepines Scrn Negative Urine Cocaine Screen Negative U Marijuana (THC) Screen Negative Drugs of Abuse Note Disclamer Plasma/Serum Alcohol (0-0.07) % SARS-CoV-2 (PCR) Negative (Negative)
--- NOTE | 2022-01-12 14:33 | Progress Note ---
Subjective - Reason for Consult Reason for consult: MHE - Chief Complaint Chief complaint: Subjective DATE SEEN: 01/12/22 Patient seen today. Patient observerd to be in good disposition. Patient states that he is "feeling good". Patient denies SI/HI at this time. Patient aslo denies Auditory and Visual hallucination. Psych will sign off at this time. Patient will be discharged to previous accommodation. - DATE SEEN: 01/11/22 Patient seen today. Patient states he is "Still out of it". Patient admits to having Auditory and Visual hallucinations. Patient states "i am scared of living in the society" due to his "multiple personalities". Patient states that he is having SI thoughts, that are telling him to "kill myself". Patient denies any HI at this time. Patient still awaiting placement at this time, will continue to f [facility]aneuf hospital. 01/10/2022: Patient seen today. Patient states that he is still hearing voices. Patient awaiting placement. 01/09/2022: Patient seen today in the ER. Patient cooperative and states "i guess i an ok" Patient states that he has been sleeping good and his appetite okay. Patient denies any SI/HI, also denies hearing voices. 01/08/2022: Patient seen today in the quiet room. Patient states that " he feels "Horrible" but "cant remember anything". Patient states that his appetite is good and slept "some" during the night. Patient denies any SI/HI at this time. 01/07/2022: Patient seen today. Patient sitting and stating that hi "memory is christiano whacked out". Patient states that one of his multiple personalities" took over" him and took off his clothes. Patient kept rambling and states that "it's not me doing it" and he doesn't feel safe. Patient states that he is having SI thoughts and had a plan to "slash neck" or jump in front of a "moving vehicle". Patient will continue with current medications while awaiting to be transferred for inpatient treatment. 01/06/2022: Patient seen today, was calm and cooperative. Patient states " i don't know why i am here" States that he would like to go home as he is much calmer. Patient states that he did not sleep very well during the night, but his appetite is ok. Patient denies SI/HI at this time. History of Present Illness - Reason for Consult Consult date: 01/05/22 Reason for consult: SI, hallucinations - History of Present Psychiatric Illness HPI: This is a pleasant and cooperative 26-year-old male, who currently identifies as a male, with a past medical history of gender identity disorder, and multiple personality disorder, who presents to the department today with a request for long-term psychiatric hospitalization. He states that he has been previously today suicidal. He is not currently suicidal at this time. He denies hallucinations to myself. He denies physical pain at this time. He does report that he thinks he is masturbating too much with shampoo. The patient was seen today. He is calm and cooperative. He says he came to the hospital because he "started freaking out and hearing voices telling him to do things sexual and suicidal things." The patient does endorse SI with a plan to "slash his throat." He says he also has "multiple personalities that has been bugging me." The patient says he lives in a Transitional Home. He could not tell me why. He did not know any of his meds. The patient denies any illicit drug use, alcohol or nicotine. PAST PSYCHIATRIC HISTORY: Diagnoses: Schizophrenia, multiple personality disorder Suicide attempts or Self-harm behavior: Yes Prior psychiatric hospitalizations: Yes Substance Abuse history: Denies Previous psychiatric medications tried: Could not recall Outpatient treatment: Yes PAST MEDICAL HISTORY: None reported Family Psychiatric History: None reported or documented SOCIAL HISTORY Marital Status: Single Living Arrangements: Transitional housing Employment Status: Disabled Access to guns/weapons: Denies Education: History of Abuse: Denies Legal History: Denies REVIEW OF SYSTEMS Constitutional: Negative for weight loss ENT: Negative for stridor Respiratory: Negative for cough or hemoptysis All other systems reviewed and are negative MENTAL STATUS EXAMINATION General Appearance and Behavior: Age appropriate, wearing appropriate clothes, cooperative, polite with questioning, fair eye contact Cooperation: cooperative Psychomotor Behavior: Psychomotor normal Mood: Depressed Affect and affective range: congruent with stated affect Thought Process: circumstantial Thought Content: hallucinations, SI Speech: Normal tone and pace Suicidal Ideation: Yes Homicidal Ideation: Denies Hallucination: Auditory Delusions: Yes Impulse Control: Limited Insight and Judgment: Poor Memory: Limited Attention: Distracted Orientation: Alert and oriented Diagnoses: Schizophrenia Treatment Plan 1013 Olanzapine 7.5mg po daily Doxepin 10mg po qhs Sitter: per primary Medical: Per primary Disposition: Recommend acute psychiatric inpatient treatment Will follow. Thanks Case staffed by Dr. Ramirez Medications and Allergies Allergies Allergy/AdvReac Type Severity Reaction Status Date / Time No Known Allergies Allergy Verified 01/04/22 11:53 Home Medications Medication Instructions Recorded Confirmed Last Taken Type Divalproex ER [Depakote ER] 500 mg PO BID 06/02/14 12/20/19 1 Day Ago History ~07/17/16 500 OLANzapine [Zyprexa] 20 mg PO BID 06/02/14 12/20/19 1 Day Ago History ~07/17/16 20 Trazodone HCl [traZODone] 150 mg PO HS 06/02/14 12/20/19 1 Day Ago History ~07/17/16 150 AtorvaSTATin [Lipitor] 20 mg PO QPM 06/06/15 12/20/19 1 Day Ago History ~07/17/16 20 Benztropine [Cogentin] 2 mg PO BID 06/06/15 12/20/19 1 Day Ago History ~07/17/16 2 Chlorpromazine HCl [chlorproMAZINE] 100 mg PO TID 06/06/15 12/20/19 1 Day Ago History ~07/17/16 100 Docusate Sodium [Colace CAP] 100 mg PO BID PRN 06/06/15 12/20/19 1 Day Ago History ~07/17/16 100 Mirtazapine [Remeron 30mg TAB] 30 mg PO QHS 06/06/15 12/20/19 1 Day Ago History ~07/17/16 30 clonazePAM [KlonoPIN] 2 mg PO BID 06/06/15 12/20/19 1 Day Ago History ~07/17/16 2 diphenhydrAMINE [Benadryl CAP] 50 mg PO QHS PRN 06/06/15 12/20/19 1 Day Ago History ~07/17/16 50 Mental Status Exam Mental Status Exam - Vital signs Last Vital Signs Temp 98.6 F 01/12/22 08:54 Pulse 95 H 01/12/22 08:54 Resp 18 01/12/22 08:54 BP 154/88 01/12/22 08:54 Pulse Ox 96 01/12/22 08:56
== END 2022-01-12 17:40 | disposition home or self-care (01) ==
LOC: EEVIPCON 11:45 → ED 11:45
DX: Z13.30 Encounter for screening examination for mental health and behavioral disorders, unspecified (principal); Z04.6 Encounter for general psychiatric examination, requested by authority; Z20.822 Contact with and (suspected) exposure to COVID-19; F20.9 Schizophrenia, unspecified; F31.9 Bipolar disorder, unspecified; Z79.899 Other long term (current) drug therapy
CPT/HCPCS: 36415; 80053; 80307; 81001; 85027; 96372; 99284; J1630; J2060; J3486; U0003; 80320; G0480

== ENCOUNTER 2022-01-18 13:16 | Emergency (ER) | payer MEDICAID ==
[2022-01-18 14:59] LABS: Basophils % (Auto) 0.6 % (0.0-1.8); Eosinophils # (Auto) 0.2 K/mm3 (0.0-0.4); Eosinophils % (Auto) 3.3 % (0.0-4.3); Hematocrit 41.5 % (35.5-45.6); Hemoglobin 13.8 gm/dl (11.8-15.2); Lymphocytes # (Auto) 2.8 K/mm3 (1.2-5.4); Mean Corpuscular HGB Conc 33 % (32-34); Mean Corpuscular Volume 91 fl (84-94); Monocytes # (Auto) 0.9 K/mm3 (0.0-0.8); Monocytes % (Auto) 11.5 % (0.0-7.3); Platelet Count 191 K/mm3 (140-440); Red Blood Count 4.56 M/mm3 (3.65-5.03); Red Cell Distribution Width 14.8 % (13.2-15.2)
[2022-01-18 15:46] LABS: Alanine Aminotransferase 14 units/L (7-56); Albumin 4.2 g/dL (3.9-5); Blood Urea Nitrogen 11 mg/dL (9-20); Calcium 9.6 mg/dL (8.4-10.2); Hemolysis Index 20
[2022-01-18 15:54] LABS: Amphetamine Screen,Urine Negative; Benzodiazepines Screen,Urine Negative; Cannabinoid Screen,Urine Negative; Cocaine Screen,Urine Negative; Methadone Screen,Urine Negative; Opiate Screen,Urine Negative
[2022-01-18 15:59] LABS: BUN/Creatinine Ratio 16
[2022-01-18 16:14] LABS: Mucus,Urine FEW /HPF
[2022-01-18 16:23] LABS: Bilirubin,Urine Negative (Negative); Blood,Urine Negative (Negative); Color,Urine Straw (Yellow); Urobilinogen,Urine < 2.0 mg/dL (<2.0)
--- NOTE | 2022-01-18 18:19 | Emergency Department Report ---
ED Psych HPI - General Chief Complaint: Psych Stated Complaint: SUICIDAL Time Seen by Provider: 01/18/22 13:54 Source: patient, EMS Mode of arrival: Stretcher - History of Present Illness Initial Comments: Patient is a 26-year-old male brought in by [facility] for suicidal ideation and aggressive behavior. - Related Data Home Medications Medication Instructions Recorded Confirmed Last Taken Divalproex ER [Depakote ER] 500 mg PO BID 06/02/14 12/20/19 1 Day Ago ~07/17/16 500 OLANzapine [Zyprexa] 20 mg PO BID 06/02/14 12/20/19 1 Day Ago ~07/17/16 20 Trazodone HCl [traZODone] 150 mg PO HS 06/02/14 12/20/19 1 Day Ago ~07/17/16 150 AtorvaSTATin [Lipitor] 20 mg PO QPM 06/06/15 12/20/19 1 Day Ago ~07/17/16 20 Benztropine [Cogentin] 2 mg PO BID 06/06/15 12/20/19 1 Day Ago ~07/17/16 2 Chlorpromazine HCl [chlorproMAZINE] 100 mg PO TID 06/06/15 12/20/19 1 Day Ago ~07/17/16 100 Docusate Sodium [Colace CAP] 100 mg PO BID PRN 06/06/15 12/20/19 1 Day Ago ~07/17/16 100 Mirtazapine [Remeron 30mg TAB] 30 mg PO QHS 06/06/15 12/20/19 1 Day Ago ~07/17/16 30 clonazePAM [KlonoPIN] 2 mg PO BID 06/06/15 12/20/19 1 Day Ago ~07/17/16 2 diphenhydrAMINE [Benadryl CAP] 50 mg PO QHS PRN 06/06/15 12/20/19 1 Day Ago ~07/17/16 50 Allergies Allergy/AdvReac Type Severity Reaction Status Date / Time No Known Allergies Allergy Verified 01/18/22 13:28 ED Review of Systems ROS: Stated complaint: SUICIDAL Other details as noted in HPI Constitutional: denies: chills, fever Respiratory: denies: cough, shortness of breath, wheezing Cardiovascular: denies: chest pain, palpitations Gastrointestinal: denies: abdominal pain, nausea, diarrhea Genitourinary: denies: urgency, dysuria Musculoskeletal: denies: back pain, joint swelling, arthralgia Skin: denies: rash, lesions Neurological: denies: headache, weakness, paresthesias Psychiatric: suicidal thoughts ED Past Medical Hx - Past Medical History Hx Psychiatric Treatment: Yes (schizophrenia, depression, anxiety, bipolar, ADHD, ADD, multiple personalit) Additional medical history: Autism Spectrum-Asperger Syndrome. Gender Identity Disorder - Surgical History Additional Surgical History: R Wrist - Social History Smoking Status: Unknown if ever smoked - Medications Home Medications: Home Medications Medication Instructions Recorded Confirmed Last Taken Type Divalproex ER [Depakote ER] 500 mg PO BID 06/02/14 12/20/19 1 Day Ago History ~07/17/16 500 OLANzapine [Zyprexa] 20 mg PO BID 06/02/14 12/20/19 1 Day Ago History ~07/17/16 20 Trazodone HCl [traZODone] 150 mg PO HS 06/02/14 12/20/19 1 Day Ago History ~07/17/16 150 AtorvaSTATin [Lipitor] 20 mg PO QPM 06/06/15 12/20/19 1 Day Ago History ~07/17/16 20 Benztropine [Cogentin] 2 mg PO BID 06/06/15 12/20/19 1 Day Ago History ~07/17/16 2 Chlorpromazine HCl [chlorproMAZINE] 100 mg PO TID 06/06/15 12/20/19 1 Day Ago History ~07/17/16 100 Docusate Sodium [Colace CAP] 100 mg PO BID PRN 06/06/15 12/20/19 1 Day Ago History ~07/17/16 100 Mirtazapine [Remeron 30mg TAB] 30 mg PO QHS 06/06/15 12/20/19 1 Day Ago History ~07/17/16 30 clonazePAM [KlonoPIN] 2 mg PO BID 06/06/15 12/20/19 1 Day Ago History ~07/17/16 2 diphenhydrAMINE [Benadryl CAP] 50 mg PO QHS PRN 06/06/15 12/20/19 1 Day Ago History ~07/17/16 50 ED Physical Exam - General Limitations: No Limitations General appearance: alert, in no apparent distress - Head Head exam: Present: atraumatic, normocephalic - Respiratory Respiratory exam: Present: normal lung sounds bilaterally. Absent: respiratory distress - Cardiovascular Cardiovascular Exam: Present: regular rate, normal rhythm, normal heart sounds - GI/Abdominal GI/Abdominal exam: Present: soft. Absent: distended, tenderness - Rectal Rectal exam: Present: deferred - Neurological Exam Neurological exam: Present: alert, oriented X3 - Psychiatric Psychiatric exam: Present: normal affect, normal mood, suicidal ideation - Skin Skin exam: Present: warm, dry, intact, normal color ED Course Vital Signs 01/18/22 13:24 Temperature 98.6 F Pulse Rate 89 Respiratory 18 Rate Blood Pressure 141/93 [Left] O2 Sat by Pulse 100 Oximetry ED Medical Decision Making - Lab Data Result diagrams: 01/18/22 14:38 01/18/22 14:38 - Medical Decision Making Labs grossly unremarkable. 1013 signed. Awaiting assessment by psychiatry. Critical care attestation.: If time is entered above; I have spent that time in minutes in the direct care of this critically ill patient, excluding procedure time. ED Disposition Clinical Impression: Suicidal ideation, Aggressive behavior Disposition: 30 STILL A PATIENT Is pt being admited?: No Condition: Stable
--- NOTE | 2022-01-19 08:11 | Progress Note ---
Subjective - Reason for Consult Consult date: 01/19/22 Reason for consult: SI, aggression - Chief Complaint Chief complaint: The patient was seen today. He says his multiple personalities are telling him to do bad things. He says "they are telling me to kill myself." The patient endorses SI with a plan to slit his throat. He says he's seeing shadows and hearing people whisper bad things. REVIEW OF SYSTEMS Constitutional: Negative for weight loss ENT: Negative for stridor Respiratory: Negative for cough or hemoptysis All other systems reviewed and are negative MENTAL STATUS EXAMINATION General Appearance and Behavior: Age appropriate, wearing appropriate clothes, cooperative, polite with questioning, fair eye contact Cooperation: cooperative Psychomotor Behavior: Psychomotor normal Mood: Depressed Affect and affective range: congruent with stated affect Thought Process: circumstantial Thought Content: hallucinations, SI Speech: Normal tone and pace Suicidal Ideation: Yes Homicidal Ideation: Denies Hallucination: Auditory Delusions: Yes Impulse Control: Limited Insight and Judgment: Poor Memory: Limited Attention: Distracted Orientation: Alert and oriented Diagnoses: Schizophrenia Treatment Plan 1013 Olanzapine 10mg po daily Doxepin 25mg po qhs Start Depakote 125mg po BID Sitter: per primary Medical: Per primary Disposition: Recommend acute psychiatric inpatient treatment Will follow. Thanks Case staffed by Dr. Ramirez Mental Status Exam - Vital signs Last Vital Signs Temp 97.6 F 01/19/22 03:08 Pulse 74 01/19/22 03:08 Resp 18 01/19/22 03:08 BP 131/93 01/19/22 03:08 Pulse Ox 99 01/19/22 03:08
[2022-01-19] MEDS: DIVALPROEX DR 125 MG TAB PO SCH (09:47)
--- NOTE | 2022-01-19 15:27 | Event Note ---
Date: 01/19/22 Chart reviewed. VSS. Pt is comfortable/well appearing. Denies any complaints and is in no distress.
[2022-01-20] MEDS: DIVALPROEX DR 125 MG TAB PO SCH ×3 (03:19→21:45)
[2022-01-20] MEDS: DOXEPIN 25 MG CAP PO SCH ×2 (03:19→21:45)
--- NOTE | 2022-01-20 12:33 | Event Note ---
Date: 01/20/22 Pt's chart reviewed. VSS. Pt is calm, cooperative. He is requesting to be discharged to home. Pt informed by this provider that I am awaiting final dispositioning by Mental Health. Will continue to monitor.
--- NOTE | 2022-01-20 13:27 | Progress Note ---
Subjective - Reason for Consult Reason for consult: MHE - Chief Complaint Chief complaint: SUBJECTIVE DATE SEEN: 01/20/22 Patient seen today. Patient states that "I was hearing voices telling me what to say" when i came, but now " I feel great, perfect". Patient states that he wanted to come back here because " I felt i was safe here". But he would like to go back to where he was. Patient denies any SI/HI/AVH at this time. The patient was seen today. He says his multiple personalities are telling him to do bad things. He says "they are telling me to kill myself." The patient endorses SI with a plan to slit his throat. He says he's seeing shadows and hearing people whisper bad things. REVIEW OF SYSTEMS Constitutional: Negative for weight loss ENT: Negative for stridor Respiratory: Negative for cough or hemoptysis All other systems reviewed and are negative MENTAL STATUS EXAMINATION General Appearance and Behavior: Age appropriate, wearing appropriate clothes, cooperative, polite with questioning, fair eye contact Cooperation: cooperative Psychomotor Behavior: Psychomotor normal Mood: Depressed Affect and affective range: congruent with stated affect Thought Process: circumstantial Thought Content: hallucinations, SI Speech: Normal tone and pace Suicidal Ideation: Yes Homicidal Ideation: Denies Hallucination: Auditory Delusions: Yes Impulse Control: Limited Insight and Judgment: Poor Memory: Limited Attention: Distracted Orientation: Alert and oriented Diagnoses: Schizophrenia Treatment Plan 1013 Olanzapine 10mg po daily Doxepin 25mg po qhs Start Depakote 125mg po BID Sitter: per primary Medical: Per primary Disposition: Recommend acute psychiatric inpatient treatment Will follow. Thanks Case staffed by Dr. Ramirez Mental Status Exam - Vital signs Last Vital Signs Temp 98.6 F 01/20/22 07:42 Pulse 93 H 01/20/22 07:42 Resp 18 01/20/22 07:42 BP 131/79 01/20/22 07:42 Pulse Ox 98 01/20/22 10:35
[2022-01-21 08:57] VITALS: BP 135/89
[2022-01-21] MEDS: DIVALPROEX DR 125 MG TAB PO SCH (10:01)
--- NOTE | 2022-01-21 12:04 | Event Note ---
Date: 01/21/22 S: No events reported overnight O: Vital Signs - 24 hr 01/20/22 01/21/22 01/21/22 20:52 08:55 09:31 Temperature 99.2 F 98.9 F Pulse Rate 100 H 99 H Respiratory 16 18 Rate Blood Pressure 133/93 135/89 [Left] O2 Sat by Pulse 96 99 98 Oximetry E: Schizophrenia P: 1013/awaiting inpatient psych
--- NOTE | 2022-01-21 12:20 | Progress Note ---
Subjective - Reason for Consult Reason for consult: MHE - Chief Complaint Chief complaint: SUBJECTIVE DATE SEEN: 01/21/22 Patient seen today. Patient states he is doing "Great". Patient denies any SI/HI/AVH at this time. Patients okay to leave from psych stand point. 1013 will be rescinded. SUBJECTIVE DATE SEEN: 01/20/22 Patient seen today. Patient states that "I was hearing voices telling me what to say" when i came, but now " I feel great, perfect". Patient states that he wanted to come back here because " I felt i was safe here". But he would like to go back to where he was. Patient denies any SI/HI/AVH at this time. The patient was seen today. He says his multiple personalities are telling him to do bad things. He says "they are telling me to kill myself." The patient endorses SI with a plan to slit his throat. He says he's seeing shadows and hearing people whisper bad things. REVIEW OF SYSTEMS Constitutional: Negative for weight loss ENT: Negative for stridor Respiratory: Negative for cough or hemoptysis All other systems reviewed and are negative MENTAL STATUS EXAMINATION General Appearance and Behavior: Age appropriate, wearing appropriate clothes, cooperative, polite with questioning, fair eye contact Cooperation: cooperative Psychomotor Behavior: Psychomotor normal Mood: Depressed Affect and affective range: congruent with stated affect Thought Process: circumstantial Thought Content: hallucinations, SI Speech: Normal tone and pace Suicidal Ideation: Yes Homicidal Ideation: Denies Hallucination: Auditory Delusions: Yes Impulse Control: Limited Insight and Judgment: Poor Memory: Limited Attention: Distracted Orientation: Alert and oriented Diagnoses: Schizophrenia Treatment Plan 1013 Olanzapine 10mg po daily Doxepin 25mg po qhs Start Depakote 125mg po BID Sitter: per primary Medical: Per primary Disposition: Recommend acute psychiatric inpatient treatment Will follow. Thanks Case staffed by Dr. Ramirez Mental Status Exam - Vital signs Last Vital Signs Temp 98.9 F 01/21/22 08:55 Pulse 99 H 01/21/22 08:55 Resp 18 01/21/22 08:55 BP 135/89 01/21/22 08:55 Pulse Ox 98 01/21/22 09:31
[2022-01-21] MEDS ORDERED: ZOLPIDEM 5 MG TAB PO ONE (20:32)
== END 2022-01-22 16:07 | disposition home or self-care (01) ==
LOC: ED 13:16
DX: R45.851 Suicidal ideations (principal); R45.6 Violent behavior; Z20.822 Contact with and (suspected) exposure to COVID-19
CPT/HCPCS: 36415; 80053; 80307; 81001; 85025; 99284; U0003; 80320; G0480

== ENCOUNTER 2022-01-22 22:48 | Emergency (ER) | payer MEDICAID ==
[2022-01-23 00:27] LABS: BUN/Creatinine Ratio 20; Blood Urea Nitrogen 16 mg/dL (9-20); Calcium 9.3 mg/dL (8.4-10.2); Hemolysis Index 16
--- NOTE | 2022-01-23 00:45 | Emergency Department Report ---
ED Psych HPI - General Chief Complaint: Psych Stated Complaint: PSYCH EVAL Time Seen by Provider: 01/23/22 00:01 Source: patient, EMS Mode of arrival: Stretcher - History of Present Illness Initial Comments: 26 yo with aggressive behaviour who was [facility] with in appropriate behaviour. Pt was recently discharged from here with same symptoms. When asked pt says he was hearing voices again that his telling him to do those behaviours. He says he is not taking any medication for this behaviour. No other modifying or associated factors reported. - Related Data Home Medications Medication Instructions Recorded Confirmed Last Taken Divalproex ER [Depakote ER] 500 mg PO BID 06/02/14 12/20/19 1 Day Ago ~07/17/16 500 OLANzapine [Zyprexa] 20 mg PO BID 06/02/14 12/20/19 1 Day Ago ~07/17/16 20 Trazodone HCl [traZODone] 150 mg PO HS 06/02/14 12/20/19 1 Day Ago ~07/17/16 150 AtorvaSTATin [Lipitor] 20 mg PO QPM 06/06/15 12/20/19 1 Day Ago ~07/17/16 20 Benztropine [Cogentin] 2 mg PO BID 06/06/15 12/20/19 1 Day Ago ~07/17/16 2 Chlorpromazine HCl [chlorproMAZINE] 100 mg PO TID 06/06/15 12/20/19 1 Day Ago ~07/17/16 100 Docusate Sodium [Colace CAP] 100 mg PO BID PRN 06/06/15 12/20/19 1 Day Ago ~07/17/16 100 Mirtazapine [Remeron 30mg TAB] 30 mg PO QHS 06/06/15 12/20/19 1 Day Ago ~07/17/16 30 clonazePAM [KlonoPIN] 2 mg PO BID 06/06/15 12/20/19 1 Day Ago ~07/17/16 2 diphenhydrAMINE [Benadryl CAP] 50 mg PO QHS PRN 06/06/15 12/20/19 1 Day Ago ~07/17/16 50 Allergies Allergy/AdvReac Type Severity Reaction Status Date / Time No Known Allergies Allergy Verified 01/18/22 13:28 ED Review of Systems ROS: Stated complaint: PSYCH EVAL Other details as noted in HPI Comment: All other systems reviewed and negative Endocrine: denies: intolerance to cold, intolerance to heat Psychiatric: auditory hallucinations ED Past Medical Hx - Past Medical History Previous Medical History?: Yes Hx Psychiatric Treatment: Yes (schizophrenia, depression, anxiety, bipolar, ADHD, ADD, multiple personalit) Additional medical history: Autism Spectrum-Asperger Syndrome. Gender Identity Disorder - Surgical History Past Surgical History?: Yes Additional Surgical History: R Wrist - Social History Smoking Status: Never Smoker Substance Use Type: None - Medications Home Medications: Home Medications Medication Instructions Recorded Confirmed Last Taken Type Divalproex ER [Depakote ER] 500 mg PO BID 06/02/14 12/20/19 1 Day Ago History ~07/17/16 500 OLANzapine [Zyprexa] 20 mg PO BID 06/02/14 12/20/19 1 Day Ago History ~07/17/16 20 Trazodone HCl [traZODone] 150 mg PO HS 06/02/14 12/20/19 1 Day Ago History ~07/17/16 150 AtorvaSTATin [Lipitor] 20 mg PO QPM 06/06/15 12/20/19 1 Day Ago History ~07/17/16 20 Benztropine [Cogentin] 2 mg PO BID 06/06/15 12/20/19 1 Day Ago History ~07/17/16 2 Chlorpromazine HCl [chlorproMAZINE] 100 mg PO TID 06/06/15 12/20/19 1 Day Ago History ~07/17/16 100 Docusate Sodium [Colace CAP] 100 mg PO BID PRN 06/06/15 12/20/19 1 Day Ago History ~07/17/16 100 Mirtazapine [Remeron 30mg TAB] 30 mg PO QHS 06/06/15 12/20/19 1 Day Ago History ~07/17/16 30 clonazePAM [KlonoPIN] 2 mg PO BID 06/06/15 12/20/19 1 Day Ago History ~07/17/16 2 diphenhydrAMINE [Benadryl CAP] 50 mg PO QHS PRN 06/06/15 12/20/19 1 Day Ago History ~07/17/16 50 ED Physical Exam - General Limitations: No Limitations General appearance: alert, in no apparent distress - Head Head exam: Present: atraumatic, normal inspection - Eye Eye exam: Present: normal appearance Pupils: Present: normal accommodation - ENT ENT exam: Present: normal exam, normal orophraynx, mucous membranes moist - Neck Neck exam: Present: normal inspection, full ROM. Absent: tenderness - Respiratory Respiratory exam: Present: normal lung sounds bilaterally. Absent: respiratory distress, accessory muscle use - Cardiovascular Cardiovascular Exam: Present: regular rate, normal rhythm, normal heart sounds - GI/Abdominal GI/Abdominal exam: Present: soft, normal bowel sounds. Absent: distended, tenderness - Extremities Exam Extremities exam: Present: normal inspection - Back Exam Back exam: Absent: tenderness - Neurological Exam Neurological exam: Present: alert, oriented X3 - Psychiatric Psychiatric exam: Present: normal affect, normal mood - Skin Skin exam: Present: warm, normal color ED Course Vital Signs 01/22/22 01/23/22 01/23/22 22:49 00:49 06:10 Temperature 98 F Pulse Rate 88 84 Respiratory 18 18 Rate Blood Pressure 132/78 Blood Pressure 131/80 [Right] O2 Sat by Pulse 100 100 97 Oximetry 01/23/22 01/23/22 11:08 19:44 Temperature 97.8 F Pulse Rate 96 H Respiratory 18 Rate Blood Pressure Blood Pressure 145/92 [Right] O2 Sat by Pulse 97 96 Oximetry ED Medical Decision Making - Lab Data Result diagrams: 01/22/22 23:46 - Medical Decision Making here with auditory hallucination Critical care attestation.: If time is entered above; I have spent that time in minutes in the direct care of this critically ill patient, excluding procedure time. ED Disposition Clinical Impression: Auditory hallucinations, Aggressive behavior Disposition: 30 STILL A PATIENT Is pt being admited?: No Does the pt Need Aspirin: No Condition: Stable Additional Instructions: OUTPATIENT MENTAL HEALTH RESOURCES [facility], [facility] Ramiro Whitt MD: [address] [place] [address] [place], [place] [id number] [facility]: [employer] [facility] [address] [place] [address] [place] [address] [phone] [facility]: [facility] Healthcare: [address] [place] [address] [address] [place] [address]. [place] [address] [facility] [phone] [facility]: Maco Plata MD: [id number] [facility] [address] [facility] [id number] [facility]: [address] [place] [phone] [place] CRISIS AND ACCESS LINE: Professional and Agency Contacts To help Resolve Crises (22/01) [place] Crisis Line: Suicide Prevention Line: Crisis Text Line: Text START to 834030 Emergency: 911 Outpatient COMMUNITY Behavioral Health Resources: [place]: [facility] [address] [place] [id number] [facility] [address] [place] [address] Sunday thru Sunday - 8am - 5pm Call to schedule an assessment for mental health and substance abuse programs [facility] Address: [address] [place] [address] Sunday thru Sunday- 7am-2pm [facility] Address: [address] [place], [place] [address]Sunday thru Sunday: 8:30AM-5PM Referrals: JEFFERSON ROSE MD [Primary Care Provider] - 3-5 Days
--- NOTE | 2022-01-23 14:36 | Consultation ---
History of Present Illness - Reason for Consult Consult date: 01/22/22 Reason for consult: MHE - History of Present Psychiatric Illness History of Present Illness - Reason for Consult Consult date: 01/22/22 Reason for consult: SI, hallucinations - History of Present Psychiatric Illness HPI: Patient see today in the ER. Patient was recently discharged to [facility]. Patient states that he is back because he was still hearing voices telling him to "do things". Patient states that he is taking all his prescribed medications and denies any SI/HI/AVH at this time. PAST PSYCHIATRIC HISTORY: Diagnoses: Schizophrenia, multiple personality disorder Suicide attempts or Self-harm behavior: Yes Prior psychiatric hospitalizations: Yes Substance Abuse history: Denies Previous psychiatric medications tried: Could not recall Outpatient treatment: Yes PAST MEDICAL HISTORY: None reported Family Psychiatric History: None reported or documented SOCIAL HISTORY Marital Status: Single Living Arrangements: Transitional housing Employment Status: Disabled Access to guns/weapons: Denies Education: History of Abuse: Denies Legal History: Denies REVIEW OF SYSTEMS Constitutional: Negative for weight loss ENT: Negative for stridor Respiratory: Negative for cough or hemoptysis All other systems reviewed and are negative MENTAL STATUS EXAMINATION General Appearance and Behavior: Age appropriate, wearing appropriate clothes, cooperative, polite with questioning, fair eye contact Cooperation: cooperative Psychomotor Behavior: Psychomotor normal Mood: Depressed Affect and affective range: congruent with stated affect Thought Process: circumstantial Thought Content: hallucinations, SI Speech: Normal tone and pace Suicidal Ideation: Yes Homicidal Ideation: Denies Hallucination: Auditory Delusions: Yes Impulse Control: Limited Insight and Judgment: Poor Memory: Limited Attention: Distracted Orientation: Alert and oriented Diagnoses: Schizophrenia Treatment Plan 1013 Olanzapine 7.5mg po daily Doxepin 10mg po qhs Sitter: per primary Medical: Per primary Disposition: Will follow. Thanks Case staffed by Dr. Ramirez Medications and Allergies Medications and Allergies Allergies Allergy/AdvReac Type Severity Reaction Status Date / Time No Known Allergies Allergy Verified 01/18/22 13:28 Home Medications Medication Instructions Recorded Confirmed Last Taken Type Divalproex ER [Depakote ER] 500 mg PO BID 06/02/14 12/20/19 1 Day Ago History ~07/17/16 500 OLANzapine [Zyprexa] 20 mg PO BID 06/02/14 12/20/19 1 Day Ago History ~07/17/16 20 Trazodone HCl [traZODone] 150 mg PO HS 06/02/14 12/20/19 1 Day Ago History ~07/17/16 150 AtorvaSTATin [Lipitor] 20 mg PO QPM 06/06/15 12/20/19 1 Day Ago History ~07/17/16 20 Benztropine [Cogentin] 2 mg PO BID 06/06/15 12/20/19 1 Day Ago History ~07/17/16 2 Chlorpromazine HCl [chlorproMAZINE] 100 mg PO TID 06/06/15 12/20/19 1 Day Ago History ~07/17/16 100 Docusate Sodium [Colace CAP] 100 mg PO BID PRN 06/06/15 12/20/19 1 Day Ago History ~07/17/16 100 Mirtazapine [Remeron 30mg TAB] 30 mg PO QHS 06/06/15 12/20/19 1 Day Ago History ~07/17/16 30 clonazePAM [KlonoPIN] 2 mg PO BID 06/06/15 12/20/19 1 Day Ago History ~07/17/16 2 diphenhydrAMINE [Benadryl CAP] 50 mg PO QHS PRN 06/06/15 12/20/19 1 Day Ago History ~07/17/16 50 Mental Status Exam - Vital signs Last Vital Signs Temp 98 F 01/22/22 22:49 Pulse 84 01/23/22 06:10 Resp 18 01/23/22 06:10 BP 131/80 01/23/22 06:10 Pulse Ox 97 01/23/22 11:08 Results Result Diagrams: 01/22/22 23:46 Abnormal lab results 01/22/22 01/22/22 01/22/22 Range/Units 23:46 23:46 23:46 Glucose 102 H (75-100) mg/dL Salicylates < 0.3 L (2.8-20.0) mg/dL Acetaminophen 5.0 L (10.0-30.0) ug/mL All other labs normal.
[2022-01-23 15:28] LABS: Mucus,Urine FEW /HPF
[2022-01-23 15:29] LABS: Color,Urine Yellow (Yellow)
[2022-01-23 15:30] LABS: Bilirubin,Urine Negative (Negative); Blood,Urine Negative (Negative); Protein,Urine <30 mg dL mg/dL (Negative); Urobilinogen,Urine < 2.0 mg/dL (<2.0)
[2022-01-24 04:46] VITALS: BP 125/69
--- NOTE | 2022-01-24 12:20 | Progress Note ---
Subjective - Reason for Consult Reason for consult: MHE - Chief Complaint Chief complaint: Patient seen today. Patient states that he is doing okay. Patient denies any SI/HI/AVH at this time. Psych will sign off and 1013 rescinded. PAST PSYCHIATRIC HISTORY: Diagnoses: Schizophrenia, multiple personality disorder Suicide attempts or Self-harm behavior: Yes Prior psychiatric hospitalizations: Yes Substance Abuse history: Denies Previous psychiatric medications tried: Could not recall Outpatient treatment: Yes PAST MEDICAL HISTORY: None reported Family Psychiatric History: None reported or documented SOCIAL HISTORY Marital Status: Single Living Arrangements: Transitional housing Employment Status: Disabled Access to guns/weapons: Denies Education: History of Abuse: Denies Legal History: Denies REVIEW OF SYSTEMS Constitutional: Negative for weight loss ENT: Negative for stridor Respiratory: Negative for cough or hemoptysis All other systems reviewed and are negative MENTAL STATUS EXAMINATION General Appearance and Behavior: Age appropriate, wearing appropriate clothes, cooperative, polite with questioning, fair eye contact Cooperation: cooperative Psychomotor Behavior: Psychomotor normal Mood: Normal Affect and affective range: congruent with stated affect Thought Process: circumstantial Thought Content: Normal Speech: Normal tone and pace Suicidal Ideation: Denies Homicidal Ideation: Denies Hallucination: Denies Delusions: Denies Impulse Control: Limited Insight and Judgment: Poor Memory: Limited Attention: Distracted Orientation: Alert and oriented Diagnoses: Schizophrenia Treatment Plan Olanzapine 7.5mg po daily Doxepin 10mg po qhs Sitter: per primary Medical: Per primary Disposition: DC 1013 Will sign off. Thanks Case staffed by Dr. Ramirez Medications and Allergies Mental Status Exam - Vital signs Last Vital Signs Temp 97.9 F 01/24/22 03:31 Pulse 84 01/24/22 03:31 Resp 18 01/24/22 03:31 BP 125/69 01/24/22 03:31 Pulse Ox 100 01/24/22 09:22
--- NOTE | 2022-01-24 16:50 | Emergency Department Report ---
Blank Doc - Documentation Documentation: 26-year-old male with history of schizophrenia, anxiety, and bipolar disorder who was brought in for evaluation, who has been cleared now by mental health will be discharged. Patient was seen by me [id number] is not hallucinating. I will rescind 1013 and discharge patient home.
== END 2022-01-24 18:39 | disposition home or self-care (01) ==
LOC: EEVIPCON 22:48 → ED 22:48
DX: R44.0 Auditory hallucinations (principal); F91.1 Conduct disorder, childhood-onset type; Z20.822 Contact with and (suspected) exposure to COVID-19; F32.9 Major depressive disorder, single episode, unspecified; F41.9 Anxiety disorder, unspecified; F90.9 Attention-deficit hyperactivity disorder, unspecified type; F44.81 Dissociative identity disorder; F84.5 Asperger's syndrome; F64.9 Gender identity disorder, unspecified; Z98.890 Other specified postprocedural states
CPT/HCPCS: 80048; 81001; 99284; U0003; 80320; G0480